=== PATIENT | female | born 1940 | race Caucasian/White ===

== ENCOUNTER 2017-05-07 18:36 | Inpatient (IN) | payer MEDICARE ==
[2017-05-07] MEDS ORDERED: SODIUM CHLORIDE 0.9% 500 ML IV STA (20:00)
[2017-05-07] MEDS ORDERED: FAMOTIDINE 20 MG/2 ML VIAL IV STA (20:01)
--- NOTE | 2017-05-07 20:03 | ED ---
General Adult HPI - General Chief complaint: Extremity Problem,Nontraumatic Stated complaint: left leg swelling Time Seen by Provider: 05/07/17 19:55 Source: patient, RN notes reviewed Mode of arrival: wheelchair Limitations: no limitations - History of Present Illness Initial comments: 76-year-old female presents to the emergency Department chief complaint of swelling to the left lower extremity. Patient states she noticed this yesterday and she had pain with walking to the leg. Patient states she does not see the doctor and she has never been to the doctor. Patient states that she has had some decreased desire to eat over the past week or so and she's lost about 7 pounds. Patient states then this leg swelled up. Patient states that she's never had a feeling this before. Patient was concerned due to her symptoms so she thought that she should be evaluated. Patient denies any recent fever, chills, shortness of breath, chest pain, back pain, abdominal pain, nausea vomiting, numbness or tingling, dysuria or hematuria, constipation or diarrhea, headaches or visual changes, or any other current symptoms. - Related Data Home Medications Medication Instructions Recorded Confirmed No Known Home Medications [No 05/07/17 05/07/17 Known Home Medications] Allergies Allergy/AdvReac Type Severity Reaction Status Date / Time No Known Allergies Allergy Verified 05/07/17 20:19 Review of Systems ROS Statement: Those systems with pertinent positive or pertinent negative responses have been documented in the HPI. ROS Other: All systems not noted in ROS Statement are negative. 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 Eye: Pupils are equal, round and reactive to light, extra-ocular movements are intact; there is normal conjunctiva bilaterally. No signs of icterus. Ears, nose, mouth and throat: There are moist mucous membranes. Neck: The neck is supple, there is no tenderness. Cardiovascular: There is a regular rate and rhythm. No murmur, rub or gallop is appreciated. Respiratory: Lungs are clear to auscultation, respirations are non-labored, breath sounds are equal. No wheezes, stridor, rales, or rhonchi. Gastrointestinal: Soft, non-distended, non-tender abdomen without masses or organomegaly noted. There is no rebound or guarding present. No CVA tenderness. Bowel sounds are unremarkable. Back: There is no tenderness to palpation in the midline. There is no obvious deformity. No rashes noted. Musculoskeletal: Normal ROM, no tenderness, There is no pedal edema. There is no calf tenderness or swelling. Sensation intact. Pulses equal bilaterally 2+. Neurological: CN II-XII intact, There are no obvious motor or sensory deficits. Coordination appears grossly intact. Speech is normal. Skin: Skin is warm and dry and no rashes or lesions are noted. Psychiatric: Cooperative, appropriate mood & affect, normal judgment. Limitations: no limitations Course Vital Signs 05/07/17 19:03 Temperature 99.4 F Pulse Rate 102 H Respiratory 18 Rate Blood Pressure 130/79 O2 Sat by Pulse 97 Oximetry Medical Decision Making - Medical Decision Making 76-year-old female presents for left lower extremity swelling. This time lab work is reviewed. The patient does appear to have a left lower extremity DVT. This time patient does not regularly see physicians. We will admit the patient on IV heparin. We will have vascular consult in due to the extensiveness of the DVT. Patient is in agreement with the plan. Dr. Lazo spoke with the physician on-call. Dr. Hamilton - Lab Data Result diagrams: 05/07/17 20:10 05/07/17 20:10 Lab Results 05/07/17 05/07/17 05/07/17 Range/Units 20:10 20:10 20:10 WBC 8.3 (3.8-10.6) k/uL RBC 3.90 (3.80-5.40) m/uL Hgb 12.6 (11.4-16.0) gm/dL Hct 36.8 (34.0-46.0) % MCV 94.3 (80.0-100.0) fL MCH 32.4 (25.0-35.0) pg MCHC 34.4 (31.0-37.0) g/dL RDW 13.6 (11.5-15.5) % Plt Count 150 (150-450) k/uL Neutrophils % 57 % Lymphocytes % 28 % Monocytes % 9 % Eosinophils % 1 % Basophils % 1 % Neutrophils # 4.8 (1.3-7.7) k/uL Lymphocytes # 2.3 (1.0-4.8) k/uL Monocytes # 0.8 (0-1.0) k/uL Eosinophils # 0.1 (0-0.7) k/uL Basophils # 0.1 (0-0.2) k/uL PT 11.3 (9.0-12.0) sec INR 1.1 (<1.2) APTT 23.3 (22.0-30.0) sec Sodium 131 L (137-145) mmol/L Potassium 4.6 (3.5-5.1) mmol/L Chloride 97 L (98-107) mmol/L Carbon Dioxide 25 (22-30) mmol/L Anion Gap 9 mmol/L BUN 14 (7-17) mg/dL Creatinine 1.00 (0.52-1.04) mg/dL Est GFR (MDRD) Af Amer >60 (>60 ml/min/1.73 sqM) Est GFR (MDRD) Non-Af 54 (>60 ml/min/1.73 sqM) Glucose 121 H (74-99) mg/dL Plasma Lactic Acid Mitchell (0.7-2.0) mmol/L Calcium 9.0 (8.4-10.2) mg/dL Total Bilirubin 1.1 (0.2-1.3) mg/dL AST 37 H (14-36) U/L ALT 50 (9-52) U/L Alkaline Phosphatase 100 (38-126) U/L Total Protein 7.5 (6.3-8.2) g/dL Albumin 3.9 (3.5-5.0) g/dL Amylase 54 (30-110) U/L Lipase 146 (23-300) U/L Urine Color Urine Appearance (Clear) Urine pH (5.0-8.0) Ur Specific [place] (1.001-1.035) Urine Protein (Negative) Urine Glucose (UA) (Negative) Urine Ketones (Negative) Urine Blood (Negative) Urine Nitrite (Negative) Urine Bilirubin (Negative) Urine Urobilinogen (<2.0) mg/dL Ur Leukocyte Esterase (Negative) 05/07/17 05/07/17 Range/Units 20:10 21:23 WBC (3.8-10.6) k/uL RBC (3.80-5.40) m/uL Hgb (11.4-16.0) gm/dL Hct (34.0-46.0) % MCV (80.0-100.0) fL MCH (25.0-35.0) pg MCHC (31.0-37.0) g/dL RDW (11.5-15.5) % Plt Count (150-450) k/uL Neutrophils % % Lymphocytes % % Monocytes % % Eosinophils % % Basophils % % Neutrophils # (1.3-7.7) k/uL Lymphocytes # (1.0-4.8) k/uL Monocytes # (0-1.0) k/uL Eosinophils # (0-0.7) k/uL Basophils # (0-0.2) k/uL PT (9.0-12.0) sec INR (<1.2) APTT (22.0-30.0) sec Sodium (137-145) mmol/L Potassium (3.5-5.1) mmol/L Chloride (98-107) mmol/L Carbon Dioxide (22-30) mmol/L Anion Gap mmol/L BUN (7-17) mg/dL Creatinine (0.52-1.04) mg/dL Est GFR (MDRD) Af Amer (>60 ml/min/1.73 sqM) Est GFR (MDRD) Non-Af (>60 ml/min/1.73 sqM) Glucose (74-99) mg/dL Plasma Lactic Acid Mitchell 0.9 (0.7-2.0) mmol/L Calcium (8.4-10.2) mg/dL Total Bilirubin (0.2-1.3) mg/dL AST (14-36) U/L ALT (9-52) U/L Alkaline Phosphatase (38-126) U/L Total Protein (6.3-8.2) g/dL Albumin (3.5-5.0) g/dL Amylase (30-110) U/L Lipase (23-300) U/L Urine Color Light Yellow Urine Appearance Clear (Clear) Urine pH 6.5 (5.0-8.0) Ur Specific [place] 1.002 (1.001-1.035) Urine Protein Negative (Negative) Urine Glucose (UA) Negative (Negative) Urine Ketones Negative (Negative) Urine Blood Negative (Negative) Urine Nitrite Negative (Negative) Urine Bilirubin Negative (Negative) Urine Urobilinogen <2.0 (<2.0) mg/dL Ur Leukocyte Esterase Negative (Negative) - Radiology Data Radiology results: report reviewed, image reviewed Disposition Clinical Impression: Deep vein thrombosis (DVT) of left lower extremity, Hyponatremia Disposition: ADMITTED IP TO THIS [facility] Condition: Stable Referrals: Patricia Maya MD [Primary Care Provider] - 1-2 days Time of Disposition: 22:12 Decision Date: 05/07/17 Decision Time: 22:12
[2017-05-07 20:17] LABS: Basophils # (A) 0.1 k/uL (0-0.2); Basophils % (A) 1 %; CH 32.4; CHCM 34.5; Eosinophils # (A) 0.1 k/uL (0-0.7); Eosinophils % (A) 1 %; HCT 36.8 % (34.0-46.0); HDW 2.51; HGB 12.6 gm/dL (11.4-16.0); Luc # (Auto) 0.26; Luc % (Auto) 3; Lymphocytes # (A) 2.3 k/uL (1.0-4.8); Lymphocytes % (A) 28 %; MCH 32.4 pg (25.0-35.0); MCHC 34.4 g/dL (31.0-37.0); MCV 94.3 fL (80.0-100.0); Mean Platelet Volume 7.9; Monocytes # (A) 0.8 k/uL (0-1.0); Monocytes % (A) 9 %; Neutrophils # (A) 4.8 k/uL (1.3-7.7); Neutrophils % (A) 57 %; RDW 13.6 % (11.5-15.5); WBC 8.3 k/uL (3.8-10.6); WBC (Perox) 7.97
[2017-05-07 20:29] LABS: ALT 50 U/L (9-52); AST 37 U/L (14-36); Alkaline Phosphatase 100 U/L (38-126); Amylase 54 U/L (30-110); Anion Gap 9 mmol/L; Blood Urea Nitrogen 14 mg/dL (7-17); Carbon Dioxide 25 mmol/L (22-30); Chloride 97 mmol/L (98-107); Glucose 121 mg/dL (74-99); INR 1.1 (<1.2); Non-African American GFR(MDRD) 54 (>60 ml/min/1.73 sqM); Partial Thromboplastin Time 23.3 sec (22.0-30.0); Potassium 4.6 mmol/L (3.5-5.1); Prothrombin Time 11.3 sec (9.0-12.0); Sodium 131 mmol/L (137-145); Total Bilirubin 1.1 mg/dL (0.2-1.3); Total Protein 7.5 g/dL (6.3-8.2)
--- NOTE | 2017-05-07 21:02 | US ---
EXAMINATION TYPE: US venous doppler duplex LE LT DATE OF EXAM: 05/07/2017 8:53 PM COMPARISON: NONE CLINICAL HISTORY: Pain. Left leg swelling SIDE PERFORMED: Left TECHNIQUE: The lower extremity deep venous system is examined utilizing real time linear array sonog loren with graded compression, doppler sonography and color-flow sonography. VESSELS IMAGED: External Iliac Vein (EIV) Common Femoral Vein Deep Femoral Vein Greater Saphenous Vein * Femoral Vein Popliteal Vein Small Saphenous Vein * Proximal Calf Veins (* superficial vessels) Left Leg: Positive for DVT right EIV through proximal calf veins IMPRESSION: There is extensive deep venous thrombosis in the left leg from the external iliac vein to the popliteal vein.
[2017-05-07] MEDS ORDERED: HEPARIN SODIUM,PORCINE 5,000 UNIT/ML 1 ML VIAL IV ONE (21:29)
[2017-05-07] MEDS ORDERED: HEPARIN SODIUM,PORCINE 5,000 UNIT/ML 1 ML VIAL IV PRN (21:29)
[2017-05-07] MEDS: HEPARIN SODIUM,PORCINE/D5W PMX 25,000 UNIT in DEXTROSE/WATER 1 500ML.BAG IV SCH (21:41)
[2017-05-07 21:42] LABS: Appearance,Urine Clear (Clear); Bilirubin,Urine Negative (Negative); Glucose,Urine (UA) Negative (Negative); Ketones,Urine Negative (Negative); Leukocyte Esterase,Urine Negative (Negative); Nitrite,Urine Negative (Negative); PH, Urine 6.5 (5.0-8.0); Protein,Urine Negative (Negative); Specific Gravity,Urine 1.002 (1.001-1.035); UA Billing (MACRO vs. MICRO) CHEM; Urobilinogen,Urine <2.0 mg/dL (<2.0)
[2017-05-07] MEDS ORDERED: IBUPROFEN 400 MG TAB PO PRN (22:13)
[2017-05-07] MEDS ORDERED: ACETAMINOPHEN TAB 325 MG TAB PO PRN (22:13)
[2017-05-07] MEDS ORDERED: NALOXONE 0.4 MG/ML 1 ML VIAL IV PRN (22:13)
[2017-05-08] MEDS: SODIUM CHLORIDE 0.9% 1,000 ML IV SCH ×3 (02:14→21:39)
[2017-05-08 03:34] LABS: Basophils # (A) 0.1 k/uL (0-0.2); Basophils % (A) 1 %; CH 32.2; CHCM 33.7; Eosinophils # (A) 0.2 k/uL (0-0.7); Eosinophils % (A) 2 %; HCT 32.2 % (34.0-46.0); HDW 2.49; HGB 10.7 gm/dL (11.4-16.0); Luc # (Auto) 0.31; Luc % (Auto) 4; Lymphocytes # (A) 3.2 k/uL (1.0-4.8); Lymphocytes % (A) 44 %; MCH 31.9 pg (25.0-35.0); MCHC 33.3 g/dL (31.0-37.0); MCV 95.7 fL (80.0-100.0); Mean Platelet Volume 7.4; Monocytes # (A) 0.4 k/uL (0-1.0); Monocytes % (A) 6 %; Neutrophils # (A) 3.2 k/uL (1.3-7.7); Neutrophils % (A) 43 %; RBC 3.37 m/uL (3.80-5.40); RDW 13.6 % (11.5-15.5); WBC 7.3 k/uL (3.8-10.6); WBC (Perox) 7.37
[2017-05-08] MEDS ORDERED: RX INFO: IV CONTRAST WAS GIVEN 1 EACH MISC MISCELLANE PRN (09:43)
[2017-05-08] MEDS ORDERED: IOHEXOL 350 MG/ML 25 ML BOTTLE (ORAL USE) PO PRN (09:43)
[2017-05-08 09:50] LABS: ALT 38 U/L (9-52); AST 31 U/L (14-36); Alkaline Phosphatase 77 U/L (38-126); Anion Gap 9 mmol/L; Blood Urea Nitrogen 10 mg/dL (7-17); Calcium 8.3 mg/dL (8.4-10.2); Carbon Dioxide 23 mmol/L (22-30); Chloride 102 mmol/L (98-107); Glucose 143 mg/dL (74-99); Non-African American GFR(MDRD) >60 (>60 ml/min/1.73 sqM); Potassium 4.8 mmol/L (3.5-5.1); Sodium 134 mmol/L (137-145); Total Bilirubin 0.7 mg/dL (0.2-1.3); Total Protein 6.3 g/dL (6.3-8.2)
--- NOTE | 2017-05-08 09:53 | P.HPIM ---
History of Present Illness H&P Date: 05/08/17 Chief Complaint: Left lower extremity swelling and pain 4 days This is a 76-year-old female, patient of Dr. Maya. She has no significant past medical history. She's not on any medications at home. Patient reports Monday she started having left leg pain and swelling. Symptoms continued to progress and therefore she came into the emergency room for further evaluation. Venous Doppler showed evidence of a left leg DVT from the external iliac vein to the popliteal vein. Vascular surgery has been consulted. Patient was started on IV heparin in the emergency room. Patient reports that she is been laying on the couch on a lot over the last 3 weeks she's been very inactive which is unusual for her. She's been fatigued and has had a decrease in appetite for the past 3 weeks for no apparent reason. She's also reported a 7 pound weight loss. She reports no stomach pain no vomiting no diarrhea. She has been having regular bowel movements no blood in the stools. She denies any chest pain or shortness of breath. She denies any fevers chills or sweats. Denies any burning with urination. Patient reports that she's never had a colonoscopy completed. She also reports that she has not had a Pap smear and she even states mammogram since her kids were small. A chest x-ray and computed tomography scan the abdomen and pelvis have also been ordered in regards to this decrease in her appetite with weight loss. Patient had some hyponatremia on admission sodium of 131. She's had no recent traveling. And no family history of blood clots. 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 Past Anesthesia/Blood Transfusion Reactions: No Reported Reaction Past Psychological History: No Psychological Hx Reported Smoking Status: Never smoker Past Alcohol Use History: None Reported Past Drug Use History: None Reported - Past Family History Father Family Medical History: No Reported History Mother Family Medical History: No Reported History Medications and Allergies Home Medications Medication Instructions Recorded Confirmed Type No Known Home Medications [No 05/07/17 05/07/17 History Known Home Medications] Allergies Allergy/AdvReac Type Severity Reaction Status Date / Time No Known Allergies Allergy Verified 05/07/17 20:19 Physical Exam Vitals: Vital Signs Temp Pulse Pulse Resp BP BP Pulse Ox 05/08/17 07:00 99.2 F 123 H 16 140/94 94 L 05/07/17 23:30 98.2 F 83 18 138/76 98 05/07/17 23:09 99.5 F 77 18 135/84 96 05/07/17 22:12 98.4 F 83 18 131/77 97 05/07/17 19:03 99.4 F 102 H 18 130/79 97 Intake and Output 05/07/17 05/08/17 05/08/17 22:59 06:59 14:59 Intake Total 412.4 99.54 Balance 412.4 99.54 Intake: Intake, IV Titration 162.4 99.54 Amount Heparin Sodium,Porcine/ 162.4 99.54 D5w Pmx 25,000 unit In Dextrose/Water 1 500ml. bag @ 18 UNITS/KG/HR 24 mls/hr IV .[id number] [facility] Rx #:[id number] Oral 250 Other: Voiding Method Bedpan # Voids 1 # Bowel Movements 0 Weight 66.678 kg 65.771 kg Head normocephalic Neck supple Lungs clear to auscultation bilaterally no wheezing or crackles Heart regular rate and rhythm S1-S2, no rub or gallop Abdomen is soft nontender nondistended positive bowel sounds no hepatosplenomegaly Extremities left leg is swollen and tender with palpation Neuro alert and orientated to 3 Results CBC & Chem 7: 05/08/17 03:26 05/07/17 20:10 Labs: Abnormal Lab Results - Last 24 Hours (Table) 05/07/17 05/08/17 05/08/17 Range/Units 20:10 03:26 03:26 RBC 3.37 L (3.80-5.40) m/uL Hgb 10.7 L (11.4-16.0) gm/dL Hct 32.2 L (34.0-46.0) % Plt Count 118 L (150-450) k/uL APTT 77.8 H (22.0-30.0) sec Sodium 131 L (137-145) mmol/L Chloride 97 L (98-107) mmol/L Glucose 121 H (74-99) mg/dL AST 37 H (14-36) U/L 07/24/17 Range/Units 08:24 RBC (3.80-5.40) m/uL Hgb (11.4-16.0) gm/dL Hct (34.0-46.0) % Plt Count (150-450) k/uL APTT 50.5 H (22.0-30.0) sec Sodium (137-145) mmol/L Chloride (98-107) mmol/L Glucose (74-99) mg/dL AST (14-36) U/L Thrombosis Risk Factor Assmnt - Choose All That Apply Each Risk Factor Represents 2 Points: Patient confined to bed Each Risk Factor Represents 3 Points: Age 75 years or older, History of DVT/PE Thrombosis Risk Factor Assessment Total Risk Factor Score: 8 Thrombosis Risk Factor Assessment Level: High Risk Assessment and Plan Plan: 1. Left lower extremity DVT: Venous Doppler shows DVT in the left leg from the external iliac vein to the popliteal vein. Patient is been placed on IV heparin. Vascular surgery has been consulted. 2. Unexplained decrease in appetite with a 7 pound weight loss over the past 3 weeks and extreme fatigue. Check chest x-ray and computed tomography scan of the abdomen and pelvis to rule out any malignancy 3. Hyponatremia on admission possibly related to poor oral intake. She is to been started on normal saline. Repeat a sodium level today and continue to monitor daily. 4. Tachycardia: Heart rate of 123. Check EKG place patient on telemetry. Continue to monitor GI prophylaxis Pepcid and DVT prophylaxis IV heparin Time with Patient: Greater than 30 (Greater than 50% of the total time spent in counseling and coordination of care. I performed an examination of the patient and discussed their management with the physician Maintenance Welder. I have reviewed the Physician Maintenance Welder's notes and agree with the documented findings and plan of care)
--- NOTE | 2017-05-08 12:31 | CT ---
EXAMINATION TYPE: CT abdomen pelvis wo con DATE OF EXAM: 05/08/2017 HISTORY: Patient complains of decreased appetite and weakness. CT DLP: 822 mGycm. Automated Exposure Control for Dose Reduction was Utilized. TECHNIQUE: CT scan of the abdomen and pelvis is performed with oral but without IV contrast. COMPARISON: NONE FINDINGS: Within the limitations of a non-contrast study, the following observations are made. LUNG BASES: Coronary artery calcification is present. Some respiratory motion artifact is noted. Kemar ot exclude basilar emphysematous change. LIVER/GB: No significant abnormality is appreciated. PANCREAS: Pancreas is not well seen on noncontrast study particularly distal body and tail portion, v isualized head and proximal body are felt unremarkable on noncontrast CT. SPLEEN: No significant abnormality is seen. ADRENALS: No significant abnormality is seen. 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 There is no suspicious dilatation of duodenal sweep. Contrast is seen in nondistended small bowel loops in the midabdomen. There is ve ry little oral contrast making evaluation suboptimal. Fecal material is seen in nondistended colon al mariza the periphery. There are scattered colonic diverticula most pronounced in the left and sigmoid co us. There is no convincing evidence for acute diverticulitis. GENITAL ORGANS: Uterus is anteverted in shape and within normal limits in size. LYMPH NODES: No greater than 1cm abdominal or pelvic lymph nodes are appreciated. OSSEOUS STRUCTURES: Osseous structures are demineralized. There is multilevel facet arthropathy in th e lower lumbar spine. There is disc space narrowing L4-L5 level. There is prominent Schmorl node supe rior T12 endplate. OTHER: There is heterogeneous hyperdense enlargement of the left common femoral vein extending throug h the external and common iliac vein is surrounding fluid and fat stranding. Findings correlate with long segment thrombus at this level on recent venous ultrasound. Thrombophlebitis cannot be excluded. Nodular structures left pelvis and presacral space could reflect tortuous enlarged occluded vein, ad enopathy cannot be excluded on a noncontrast enhanced study. There is mild calcified plaque in slightly tortuous abdominal aorta. IMPRESSION: No bowel obstruction is seen. Left lower extremity venous thrombus extending into pelvis is redemonstrated. Thrombophlebitis cannot be excluded as there is ill-defined fluid and fat strandin g from left thigh into pelvis noted. Cannot exclude left pelvic adenopathy versus prominent tortuous veins on study performed without IV contrast. Consider correlation with IV enhanced CT or PET/CT.
--- NOTE | 2017-05-08 12:32 | XR ---
EXAMINATION TYPE: XR chest 2V DATE OF EXAM ORDERED: 05/08/2017 HISTORY: unexplained decrease appetite. REFERENCE: None. FINDINGS: The lungs are clear. Pleural spaces are clear. Heart size is normal. IMPRESSION: NORMAL CHEST.
[2017-05-08 15:32] VITALS: BMI 23.3
--- NOTE | 2017-05-08 17:50 | P.GSCN ---
History of Present Illness History of present illness: 76 old white female, patient has been admitted with DVT of the left lower extremity according to patient she started developing some discomfort and heavy feeling in left lower extremity that was the reason brought to the emergency room. And also gives history of l os of appetite for the past 3 weeks, no history of nausea vomiting or pain in the abdomen this patient had no workup for colonoscopy your Pap smear . Of diabetes hypertension coronary artery disease Neck examination neck is supple no bruit appreciated Chest clear first and second sound normal Abdomen soft nontender no mass palpable Vascular examination brachial radial and femoral pulses are palpable tenderness noted ask her compromise noted Patient is on heparin which will be continued we will put a stitch Jobst stocking and left leg elevation if there is any contraindication to a decub ablation we consider placing filter I have discussed in detail all the option with the family they understand we'll follow with you Past Medical History Past Medical History: No Reported History History of Any Multi-Drug Resistant Organisms: None Reported 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 Past Anesthesia/Blood Transfusion Reactions: No Reported Reaction Past Psychological History: No Psychological Hx Reported Smoking Status: Never smoker Past Alcohol Use History: None Reported Past Drug Use History: None Reported - Past Family History Father Family Medical History: No Reported History Mother Family Medical History: No Reported History Medications and Allergies Home Medications Medication Instructions Recorded Confirmed Type No Known Home Medications [No 05/07/17 05/07/17 History Known Home Medications] Allergies Allergy/AdvReac Type Severity Reaction Status Date / Time No Known Allergies Allergy Verified 05/07/17 20:19 Surgical - Exam Vital Signs Temp Pulse Resp BP Pulse Ox 99.4 F 102 H 18 130/79 97 05/07/17 19:03 05/07/17 19:03 05/07/17 19:03 05/07/17 19:03 05/07/17 19:03 Results - Labs 05/08/17 03:26 05/08/17 08:24 Abnormal Lab Results - Last 24 Hours (Table) 05/07/17 05/08/17 05/08/17 Range/Units 20:10 03:26 03:26 RBC 3.37 L (3.80-5.40) m/uL Hgb 10.7 L (11.4-16.0) gm/dL Hct 32.2 L (34.0-46.0) % Plt Count 118 L (150-450) k/uL APTT 77.8 H (22.0-30.0) sec Sodium 131 L (137-145) mmol/L Chloride 97 L (98-107) mmol/L Glucose 121 H (74-99) mg/dL Calcium (8.4-10.2) mg/dL AST 37 H (14-36) U/L Albumin (3.5-5.0) g/dL 05/08/17 05/08/17 Range/Units 08:24 08:24 RBC (3.80-5.40) m/uL Hgb (11.4-16.0) gm/dL Hct (34.0-46.0) % Plt Count (150-450) k/uL APTT 50.5 H (22.0-30.0) sec Sodium 134 L (137-145) mmol/L Chloride (98-107) mmol/L Glucose 143 H (74-99) mg/dL Calcium 8.3 L (8.4-10.2) mg/dL AST (14-36) U/L Albumin 3.2 L (3.5-5.0) g/dL Diabetes panel 05/07/17 05/08/17 Range/Units 20:10 08:24 Sodium 131 L 134 L (137-145) mmol/L Potassium 4.6 4.8 (3.5-5.1) mmol/L Chloride 97 L 102 (98-107) mmol/L Carbon Dioxide 25 23 (22-30) mmol/L BUN 14 10 (7-17) mg/dL Creatinine 1.00 0.89 (0.52-1.04) mg/dL Glucose 121 H 143 H (74-99) mg/dL Calcium 9.0 8.3 L (8.4-10.2) mg/dL AST 37 H 31 (14-36) U/L ALT 50 38 (9-52) U/L Alkaline Phosphatase 100 77 (38-126) U/L Total Protein 7.5 6.3 (6.3-8.2) g/dL Albumin 3.9 3.2 L (3.5-5.0) g/dL Calcium panel 05/07/17 05/08/17 Range/Units 20:10 08:24 Calcium 9.0 8.3 L (8.4-10.2) mg/dL Albumin 3.9 3.2 L (3.5-5.0) g/dL Pituitary panel 05/07/17 05/08/17 Range/Units 20:10 08:24 Sodium 131 L 134 L (137-145) mmol/L Potassium 4.6 4.8 (3.5-5.1) mmol/L Chloride 97 L 102 (98-107) mmol/L Carbon Dioxide 25 23 (22-30) mmol/L BUN 14 10 (7-17) mg/dL Creatinine 1.00 0.89 (0.52-1.04) mg/dL Glucose 121 H 143 H (74-99) mg/dL Calcium 9.0 8.3 L (8.4-10.2) mg/dL Adrenal panel 05/07/17 05/08/17 Range/Units 20:10 08:24 Sodium 131 L 134 L (137-145) mmol/L Potassium 4.6 4.8 (3.5-5.1) mmol/L Chloride 97 L 102 (98-107) mmol/L Carbon Dioxide 25 23 (22-30) mmol/L BUN 14 10 (7-17) mg/dL Creatinine 1.00 0.89 (0.52-1.04) mg/dL Glucose 121 H 143 H (74-99) mg/dL Calcium 9.0 8.3 L (8.4-10.2) mg/dL Total Bilirubin 1.1 0.7 (0.2-1.3) mg/dL AST 37 H 31 (14-36) U/L ALT 50 38 (9-52) U/L Alkaline Phosphatase 100 77 (38-126) U/L Total Protein 7.5 6.3 (6.3-8.2) g/dL Albumin 3.9 3.2 L (3.5-5.0) g/dL
[2017-05-09] MEDS: HEPARIN SODIUM,PORCINE/D5W PMX 25,000 UNIT in DEXTROSE/WATER 1 500ML.BAG IV SCH ×2 (07:53→17:53)
[2017-05-09 09:00] LABS: Basophils # (A) 0.1 k/uL (0-0.2); Basophils % (A) 1 %; CH 31.9; CHCM 33.2; Eosinophils # (A) 0.1 k/uL (0-0.7); Eosinophils % (A) 2 %; HCT 33.4 % (34.0-46.0); HDW 2.52; HGB 11.2 gm/dL (11.4-16.0); Luc # (Auto) 0.17; Luc % (Auto) 3; Lymphocytes % (A) 34 %; MCH 32.3 pg (25.0-35.0); MCHC 33.5 g/dL (31.0-37.0); MCV 96.4 fL (80.0-100.0); Mean Platelet Volume 7.7; Monocytes # (A) 0.5 k/uL (0-1.0); Monocytes % (A) 9 %; Neutrophils % (A) 52 %; RBC 3.46 m/uL (3.80-5.40); RDW 13.5 % (11.5-15.5); WBC 5.9 k/uL (3.8-10.6); WBC (Perox) 5.14
[2017-05-09 09:12] LABS: ALT 49 U/L (9-52); AST 35 U/L (14-36); Alkaline Phosphatase 80 U/L (38-126); Anion Gap 8 mmol/L; Blood Urea Nitrogen 7 mg/dL (7-17); Calcium 8.1 mg/dL (8.4-10.2); Carbon Dioxide 19 mmol/L (22-30); Chloride 106 mmol/L (98-107); Glucose 137 mg/dL (74-99); Non-African American GFR(MDRD) >60 (>60 ml/min/1.73 sqM); Sodium 133 mmol/L (137-145); Total Bilirubin 0.7 mg/dL (0.2-1.3)
[2017-05-09] MEDS: FAMOTIDINE 20 MG TAB PO SCH (09:28)
[2017-05-09] MEDS: SODIUM CHLORIDE 0.9% 1,000 ML IV SCH (13:23)
--- NOTE | 2017-05-09 14:25 | P.PN ---
Progress Note - Text Patient came with left lower extremity and I've ex upper extremity swelling and pain patient had ultrasound which showed DVT of the external iliac vein and popliteal vein shortnessofbreathfemoralpulsesarepresentnovascularcompromisenotedpatientisonhepa [place] and patient goes home follow-up in my office in 2 weeks
--- NOTE | 2017-05-09 19:31 | P.PN ---
Subjective This is a 76-year-old female, patient of Dr. Maya. She has no significant past medical history. She's not on any medications at home. Patient reports Monday she started having left leg pain and swelling. Symptoms continued to progress and therefore she came into the emergency room for further evaluation. Venous Doppler showed evidence of a left leg DVT from the external iliac vein to the popliteal vein. Vascular surgery has been consulted. Patient was started on IV heparin in the emergency room. Patient reports that she is been laying on the couch on a lot over the last 3 weeks she's been very inactive which is unusual for her. She's been fatigued and has had a decrease in appetite for the past 3 weeks for no apparent reason. She's also reported a 7 pound weight loss. On 05/09/2017 patient is alert and oriented in no apparent distress, patient seen and examined in the presence of her family including her 2 sons She is doing well she denies any chest pain or shortness of breath at this time she is complaining of left lower extremity pain and swelling otherwise no complaints at this time. Objective - Vital Signs Vital signs: Vital Signs Temp 99.5 F 05/09/17 14:54 Pulse 83 05/09/17 14:54 Resp 16 05/09/17 14:54 BP 124/72 05/09/17 14:54 Pulse Ox 94 L 05/09/17 14:54 Intake & Output 05/09/17 05/09/17 05/10/17 06:59 18:59 06:59 Intake Total 1450 191.041 Balance 1450 191.041 Intake: Intake, IV Titration 1000 191.041 Amount Heparin Sodium,Porcine/ 191.041 D5w Pmx 25,000 unit In Dextrose/Water 1 500ml. bag @ 18 UNITS/KG/HR 24 mls/hr IV .[id number] [facility] Rx #:[id number] Sodium Chloride 0.9% 1, 1000 000 ml @ 80 mls/hr IV . [id number] [facility] Rx#:[id number] Oral 450 Other: Voiding Method Bedpan Bedpan # Voids 3 2 # Bowel Movements 0 - Exam In general patient is alert and oriented 3 HEENT head normocephalic and atraumatic Neck is supple no JVD no goiter no lymphadenopathy Chest is clear to auscultation no crackles no wheezing Cardiac exam reveals regular heart sounds no gallops no murmurs Abdomen is soft nontender no organomegaly Extremity exam reveals 2+ edema on the left more than the right - Labs CBC & Chem 7: 05/09/17 08:31 05/09/17 08:31 Labs: Abnormal Lab Results - Last 24 Hours (Table) 05/09/17 05/09/17 05/09/17 Range/Units 08:31 08:31 08:31 RBC 3.46 L (3.80-5.40) m/uL Hgb 11.2 L (11.4-16.0) gm/dL Hct 33.4 L (34.0-46.0) % Plt Count 141 L (150-450) k/uL APTT 45.3 H (22.0-30.0) sec Sodium 133 L (137-145) mmol/L Carbon Dioxide 19 L (22-30) mmol/L Glucose 137 H (74-99) mg/dL Calcium 8.1 L (8.4-10.2) mg/dL Total Protein 6.0 L (6.3-8.2) g/dL Albumin 2.9 L (3.5-5.0) g/dL 05/09/17 Range/Units 16:51 RBC (3.80-5.40) m/uL Hgb (11.4-16.0) gm/dL Hct (34.0-46.0) % Plt Count (150-450) k/uL APTT 57.2 H (22.0-30.0) sec Sodium (137-145) mmol/L Carbon Dioxide (22-30) mmol/L Glucose (74-99) mg/dL Calcium (8.4-10.2) mg/dL Total Protein (6.3-8.2) g/dL Albumin (3.5-5.0) g/dL Microbiology - Last 24 Hours (Table) 05/07/17 20:10 Blood Culture - Preliminary Blood No Growth after 24 hours Assessment and Plan Plan: 1. Left lower extremity DVT: Venous Doppler shows DVT in the left leg from the external iliac vein to the popliteal vein. Patient is been placed on IV heparin. Vascular surgery has been consulted. At this time continue with IV heparin I left a message for trimming caser Iveth Manning to assess was insurance coverage for Eliquis or Xarelto if there is no coverage will proceed was Coumadin. 2. Unexplained decrease in appetite with a 7 pound weight loss over the past 3 weeks and extreme fatigue. Check chest x-ray and computed tomography scan of the abdomen and pelvis to rule out any malignancy 3. Hyponatremia on admission possibly related to poor oral intake. She is to been started on normal saline. Repeat a sodium level today and continue to monitor daily. 4. Tachycardia: Heart rate of 123. Check EKG place patient on telemetry. Continue to monitor
[2017-05-10] MEDS: SODIUM CHLORIDE 0.9% 1,000 ML IV SCH ×3 (04:42→23:46)
[2017-05-10] MEDS: FAMOTIDINE 20 MG TAB PO SCH (09:53)
[2017-05-10 10:37] LABS: Basophils # (A) 0.1 k/uL (0-0.2); Basophils % (A) 1 %; CH 31.9; CHCM 33.8; Eosinophils # (A) 0.1 k/uL (0-0.7); Eosinophils % (A) 2 %; HCT 32.2 % (34.0-46.0); HDW 2.58; HGB 10.8 gm/dL (11.4-16.0); Luc % (Auto) 4; Lymphocytes % (A) 37 %; MCH 31.7 pg (25.0-35.0); MCHC 33.5 g/dL (31.0-37.0); MCV 94.7 fL (80.0-100.0); Monocytes # (A) 0.6 k/uL (0-1.0); Monocytes % (A) 11 %; Neutrophils # (A) 2.5 k/uL (1.3-7.7); Neutrophils % (A) 45 %; RDW 13.4 % (11.5-15.5); WBC 5.4 k/uL (3.8-10.6); WBC (Perox) 5.38
[2017-05-10 10:38] LABS: INR 1.2 (<1.2); Prothrombin Time 11.8 sec (9.0-12.0)
[2017-05-10 11:02] LABS: ALT 55 U/L (9-52); AST 39 U/L (14-36); Alkaline Phosphatase 81 U/L (38-126); Anion Gap 6 mmol/L; Blood Urea Nitrogen 7 mg/dL (7-17); Calcium 8.3 mg/dL (8.4-10.2); Carbon Dioxide 25 mmol/L (22-30); Chloride 105 mmol/L (98-107); Glucose 110 mg/dL (74-99); Non-African American GFR(MDRD) >60 (>60 ml/min/1.73 sqM); Potassium 4.5 mmol/L (3.5-5.1); Sodium 136 mmol/L (137-145); Total Bilirubin 0.5 mg/dL (0.2-1.3); Total Protein 5.8 g/dL (6.3-8.2)
[2017-05-10] MEDS: HEPARIN SODIUM,PORCINE/D5W PMX 25,000 UNIT in DEXTROSE/WATER 1 500ML.BAG IV SCH (15:03)
--- NOTE | 2017-05-10 17:35 | P.PN ---
Subjective This is a 76-year-old female, patient of Dr. Maya. She has no significant past medical history. She's not on any medications at home. Patient reports Monday she started having left leg pain and swelling. Symptoms continued to progress and therefore she came into the emergency room for further evaluation. Venous Doppler showed evidence of a left leg DVT from the external iliac vein to the popliteal vein. Vascular surgery has been consulted. Patient was started on IV heparin in the emergency room. Patient reports that she is been laying on the couch on a lot over the last 3 weeks she's been very inactive which is unusual for her. She's been fatigued and has had a decrease in appetite for the past 3 weeks for no apparent reason. She's also reported a 7 pound weight loss. On 05/09/2017 patient is alert and oriented in no apparent distress, patient seen and examined in the presence of her family including her 2 sons She is doing well she denies any chest pain or shortness of breath at this time she is complaining of left lower extremity pain and swelling otherwise no complaints at this time. Objective - Vital Signs Vital signs: Vital Signs Temp 97.5 F L 05/10/17 07:00 Pulse 77 05/10/17 07:00 Resp 16 05/10/17 07:00 BP 169/72 05/10/17 07:00 Pulse Ox 97 05/10/17 07:00 Intake & Output 05/09/17 05/10/17 05/10/17 18:59 06:59 18:59 Intake Total 773.846 0943 1460 Balance 150.792 8615 1460 Intake: Intake, IV Titration 047.096 5700 1460 Amount Heparin Sodium,Porcine/ 191.041 500 D5w Pmx 25,000 unit In Dextrose/Water 1 500ml. bag @ 18 UNITS/KG/HR 24 mls/hr IV .[id number] [facility] Rx #:[id number] Sodium Chloride 0.9% 1, 1000 960 000 ml @ 80 mls/hr IV . [id number] [facility] Rx#:[id number] Other: Voiding Method Bedpan Toilet Toilet Bedside Commode Bedside Commode # Voids 2 1 3 - Exam In general patient is alert and oriented 3 HEENT head normocephalic and atraumatic Neck is supple no JVD no goiter no lymphadenopathy Chest is clear to auscultation no crackles no wheezing Cardiac exam reveals regular heart sounds no gallops no murmurs Abdomen is soft nontender no organomegaly Extremity exam reveals 2+ edema on the left more than the right - Labs CBC & Chem 7: 05/10/17 09:42 05/10/17 09:42 Labs: Abnormal Lab Results - Last 24 Hours (Table) 05/10/17 05/10/17 05/10/17 Range/Units 09:42 09:42 09:42 RBC 3.40 L (3.80-5.40) m/uL Hgb 10.8 L (11.4-16.0) gm/dL Hct 32.2 L (34.0-46.0) % INR 1.2 H (<1.2) APTT (22.0-30.0) sec Sodium 136 L (137-145) mmol/L Glucose 110 H (74-99) mg/dL Calcium 8.3 L (8.4-10.2) mg/dL AST 39 H (14-36) U/L ALT 55 H (9-52) U/L Total Protein 5.8 L (6.3-8.2) g/dL Albumin 2.8 L (3.5-5.0) g/dL 05/10/17 Range/Units 09:42 RBC (3.80-5.40) m/uL Hgb (11.4-16.0) gm/dL Hct (34.0-46.0) % INR (<1.2) APTT 47.1 H (22.0-30.0) sec Sodium (137-145) mmol/L Glucose (74-99) mg/dL Calcium (8.4-10.2) mg/dL AST (14-36) U/L ALT (9-52) U/L Total Protein (6.3-8.2) g/dL Albumin (3.5-5.0) g/dL Microbiology - Last 24 Hours (Table) 05/07/17 20:10 Blood Culture - Preliminary Blood No Growth after 48 hours Assessment and Plan Plan: 1. Left lower extremity DVT: Venous Doppler shows DVT in the left leg from the external iliac vein to the popliteal vein. Patient is been placed on IV heparin. Vascular surgery has been consulted. At this time continue with IV heparin I left a message for rehabilitation case coordinator Iveth Manning to assess was insurance coverage for Eliquis or Xarelto if there is no coverage will proceed was Coumadin. 2. Unexplained decrease in appetite with a 7 pound weight loss over the past 3 weeks and extreme fatigue. Check chest x-ray and computed tomography scan of the abdomen and pelvis to rule out any malignancy 3. Hyponatremia on admission possibly related to poor oral intake. She is to been started on normal saline. Repeat a sodium level today and continue to monitor daily. 4. Tachycardia: Resolved. Plan is for discharge home tomorrow on Xarelto
[2017-05-11 07:41] LABS: Basophils # (A) 0.1 k/uL (0-0.2); Basophils % (A) 1 %; CHCM 33.9; Eosinophils # (A) 0.2 k/uL (0-0.7); Eosinophils % (A) 4 %; HCT 32.8 % (34.0-46.0); HDW 2.65; Luc # (Auto) 0.16; Luc % (Auto) 4; Lymphocytes # (A) 2.1 k/uL (1.0-4.8); Lymphocytes % (A) 44 %; MCH 31.8 pg (25.0-35.0); MCHC 33.6 g/dL (31.0-37.0); MCV 94.8 fL (80.0-100.0); Mean Platelet Volume 7.8; Monocytes # (A) 0.4 k/uL (0-1.0); Monocytes % (A) 9 %; Neutrophils # (A) 1.9 k/uL (1.3-7.7); Neutrophils % (A) 39 %; RBC 3.45 m/uL (3.80-5.40); RDW 13.9 % (11.5-15.5); WBC 4.8 k/uL (3.8-10.6); WBC (Perox) 4.97
[2017-05-11 08:04] VITALS: BP 147/89; PULSE 81; RESP 16; TEMP 97.1
[2017-05-11 08:09] LABS: ALT 56 U/L (9-52); AST 39 U/L (14-36); Alkaline Phosphatase 84 U/L (38-126); Anion Gap 5 mmol/L; Blood Urea Nitrogen 7 mg/dL (7-17); Calcium 8.4 mg/dL (8.4-10.2); Carbon Dioxide 25 mmol/L (22-30); Chloride 106 mmol/L (98-107); Glucose 96 mg/dL (74-99); Non-African American GFR(MDRD) >60 (>60 ml/min/1.73 sqM); Potassium 4.4 mmol/L (3.5-5.1); Sodium 136 mmol/L (137-145); Total Bilirubin 0.6 mg/dL (0.2-1.3)
[2017-05-11] MEDS: FAMOTIDINE 20 MG TAB PO SCH (08:22)
[2017-05-11] MEDS ORDERED: RIVAROXABAN 15 MG TAB PO STA (09:46)
--- NOTE | 2017-05-11 10:29 | P.DS ---
Providers Date of admission: 05/07/17 22:09 Attending physician: Juanis Hamilton Consults: 05/07/17 22:13 Consult Physician Routine Consulting Provider: Abdirashid Kothari Consult Reason/Comments: LLE DVT Do you want consulting provider notified?: Yes Primary care physician: Patricia Maya Hospital Course: Discharge diagnosis 1. Left lower extremity DVT: Venous Doppler shows DVT in the left leg from the external iliac vein to the popliteal vein. Patient is been placed on IV heparin. Patient evaluated by vascular surgery. No need for surgical intervention. She'll be placed on oral anticoagulation in the form of Xarelto with a $47 copay and follow-up with vascular surgery in 2 weeks. Continue RUDI hose. 2. Unexplained decrease in appetite with a 7 pound weight loss over the past 3 weeks and extreme fatigue. Chest x-ray and computed tomography scan of the abdomen and pelvis were negative for any malignancy. She was seen and evaluated by dietitian. Continue protein supplement 3. Hyponatremia on admission possibly related to poor oral intake. She is to been started on normal saline. Sodium level showing improvement. 136 at discharge. 4. Sinus Tachycardia: Resolved. 5. Mildly elevated LFTs at discharge. AST 39 and ALT of 56. No abdominal pain. Recommend repeating LFTs in 1 week. Hospital course This is a 76-year-old female, patient of Dr. Maya. She has no significant past medical history. She's not on any medications at home. Patient reports Monday she started having left leg pain and swelling. Symptoms continued to progress and therefore she came into the emergency room for further evaluation. Venous Doppler showed evidence of a left leg DVT from the external iliac vein to the popliteal vein. Vascular surgery has been consulted. Patient was started on IV heparin in the emergency room. Patient reports that she is been laying on the couch on a lot over the last 3 weeks she's been very inactive which is unusual for her. She's been fatigued and has had a decrease in appetite for the past 3 weeks for no apparent reason. She's also reported a 7 pound weight loss. She reports no stomach pain no vomiting no diarrhea. She has been having regular bowel movements no blood in the stools. She denies any chest pain or shortness of breath. She denies any fevers chills or sweats. Denies any burning with urination. Patient reports that she's never had a colonoscopy completed. She also reports that she has not had a Pap smear and she even states mammogram since her kids were small. A chest x-ray and computed tomography scan the abdomen and pelvis have also been ordered in regards to this decrease in her appetite with weight loss. Patient had some hyponatremia on admission sodium of 131. She's had no recent traveling. And no family history of blood clots. Chest x-ray and computed tomography scan of the abdomen and pelvis with no evidence of malignancy. Patient was evaluated by dietitian. And they recommended protein supplements. Patient's eating most of her tray. Reports that her appetite has shown some improvement. As far as her left leg DVT. She was evaluated by vascular surgery they were are recommending to continue anticoagulation. Patient was started on Xarelto. She is been placed on the 15 mg twice a day for 21 days and then will need further dosing of the Xarelto outpatient. Continue the RUDI hose. She'll follow-up with vascular surgery outpatient. Patient is medically stable for discharge. Please refer to chart for any further details. I performed an examination of the patient and discussed their management with the physician Human Resources Advisor. I have reviewed the Physician Human Resources Advisor's notes and agree with the documented findings and plan of care Patient Condition at Discharge: Stable Plan - Discharge Summary New Discharge Prescriptions: New Rivaroxaban [Xarelto] 15 mg PO BID #42 tab Discharge Medication List Rivaroxaban [Xarelto] 15 mg PO BID #42 tab 05/11/17 [Rx] Follow up Appointment(s)/Referral(s): Patricia Maya MD [Primary Care Provider] - 1 Week Abdirashid Kothari MD [STAFF PHYSICIAN] - 2 Weeks Activity/Diet/Wound Care/Special Instructions: Diet: regular Activity: as tolerated Check CMP in 1 week Discharge Disposition: HOME SELF-CARE
[2017-05-11] MEDS: HEPARIN SODIUM,PORCINE/D5W PMX 25,000 UNIT in DEXTROSE/WATER 1 500ML.BAG IV SCH (12:16)
[2017-05-11] MEDS: SODIUM CHLORIDE 0.9% 1,000 ML IV SCH (13:28)
== END 2017-05-11 13:51 | disposition home or self-care (01) | DRG 300 ==
LOC: EC 18:36 → 4MS4W 22:09
PROVIDERS: ADMIT Internal Medicine; ATTEND Internal Medicine
DX: I82.422 Acute embolism and thrombosis of left iliac vein (principal); E87.1 Hypo-osmolality and hyponatremia; I82.432 Acute embolism and thrombosis of left popliteal vein; R63.4 Abnormal weight loss; R00.0 Tachycardia, unspecified; R53.83 Other fatigue; R74.0 Nonspecific elevation of levels of transaminase and lactic acid dehydrogenase [LDH]; Z71.3 Dietary counseling and surveillance; Z90.5 Acquired absence of kidney
CPT/HCPCS: 36415; 71020; 74176; 80053; 81003; 82150; 83605; 83690; 85025; 85610; 85730; 87040; 96361; 96374; 96375; 99284

== ENCOUNTER 2022-12-28 17:45 | Emergency (ER) | payer MEDICARE, OTHER ==
[2022-12-28 18:05] VITALS: RESP 18; TEMP 97
[2022-12-28] MEDS ORDERED: HYDROmorphone 0.5 MG/0.5 ML SYRINGE IVP STA (18:14)
[2022-12-28] MEDS ORDERED: RX INFO: IV CONTRAST WAS GIVEN 1 EACH MISC MISCELLANE PRN (18:14)
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
[2022-12-28 18:53] LABS: Basophils # (A) 0.1 k/uL (0-0.2); Basophils % (A) 1 %; Eosinophils # (A) 0.1 k/uL (0-0.7); Eosinophils % (A) 1 %; HCT 35.9 % (34.0-46.0); HGB 12.1 gm/dL (11.4-16.0); Lymphocytes # (A) 1.7 k/uL (1.0-4.8); Lymphocytes % (A) 35 %; MCH 32.9 pg (25.0-35.0); MCHC 33.8 g/dL (31.0-37.0); MCV 97.2 fL (80.0-100.0); Mean Platelet Volume 8.4; Monocytes # (A) 0.4 k/uL (0-1.0); Monocytes % (A) 8 %; Neutrophils # (A) 2.5 k/uL (1.3-7.7); Neutrophils % (A) 53 %; Platelet Count 147 k/uL (150-450); RBC 3.69 m/uL (3.80-5.40); RDW 12.9 % (11.5-15.5); WBC 4.8 k/uL (3.8-10.6)
[2022-12-28] MEDS ORDERED: ACETAMINOPHEN IV (For NPO) 1,000 MG in EMPTY BAG 1 BAG IVPB ONE (19:00)
[2022-12-28 19:02] LABS: Partial Thromboplastin Time 23.1 sec (22.0-30.0); Prothrombin Time 10.3 sec (9.0-12.0)
[2022-12-28 19:07] LABS: ALT 25 U/L (4-34); AST 34 U/L (14-36); African American GFR (CKD) 69 (>60 ml/min/1.73 sqM); Albumin 4.4 g/dL (3.5-5.0); Alcohol <10 mg/dL; Alkaline Phosphatase 95 U/L (38-126); Anion Gap 8 mmol/L; Blood Urea Nitrogen 14 mg/dL (7-17); Carbon Dioxide 29 mmol/L (22-30); Chloride 100 mmol/L (98-107); Glucose 112 mg/dL (74-99); Non-African American GFR(CKD) 60 (>60 ml/min/1.73 sqM); Sodium 137 mmol/L (137-145); Total Bilirubin 0.6 mg/dL (0.2-1.3); Total Protein 7.8 g/dL (6.3-8.2)
--- NOTE | 2022-12-28 19:46 | XR ---
EXAMINATION TYPE: XR pelvis AP view DATE OF EXAM: 12/28/2022 COMPARISON: NONE HISTORY: Pain TECHNIQUE: Single view FINDINGS: The pelvic ring is intact. The proximal femurs and hip joints are intact. Sacroiliac joints are intact IMPRESSION: Negative exam. No fracture seen.
--- NOTE | 2022-12-28 19:47 | XR ---
EXAMINATION TYPE: XR chest 1V portable DATE OF EXAM: 12/28/2022 COMPARISON: 05/08/2017 HISTORY: Pain TECHNIQUE: Single view FINDINGS: The heart is normal. There is some mild increased interstitial density at the lung bases. T horacic aorta is atheromatous. There are chest leads. There are no hilar masses. IMPRESSION: Pulmonary interstitial fibrosis at the lung bases. Normal heart. Lung markings increased compared to old exam.
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
[2022-12-28] MEDS ORDERED: hydrALAZINE HCL 20 MG/ML 1 ML VIAL IVP STA (20:09)
[2022-12-28 20:34] LABS: Amphetamine Screen,Urine Not Detected (NotDetected); Barbiturate Screen,Urine Not Detected (NotDetected); Benzodiazepines Screen,Urine Not Detected (NotDetected); Cocaine Screen,Urine Not Detected (NotDetected); Methadone Screen, Urine Not Detected (NotDetected); Opiate Screen,Urine Not Detected (NotDetected); Oxycodone Screen, Urine Not Detected (NotDetected); Phencyclidine Screen,Urine Not Detected (NotDetected); Tricyclic Antidepressant,Urine Not Detected (NotDetected); Urn Cannabinoid Scrn Not Detected (NotDetected)
[2022-12-28 21:08] VITALS: BP 169/97; PULSE 83
== END 2022-12-28 21:08 | disposition home or self-care (01) ==
LOC: EC 17:45
DX: S20.219A Contusion of unspecified front wall of thorax, initial encounter (principal); I10 Essential (primary) hypertension; V89.2XXA Person injured in unspecified motor-vehicle accident, traffic, initial encounter; Y92.410 Unspecified street and highway as the place of occurrence of the external cause
CPT/HCPCS: 36415; 86900; 86901; 80053; 84484; 85025; 85610; 85730; 86850; 80306; 80320; 72170; 71045; 71260; 99285; 96374; 96375; J0360; J0131; Q9967; 93005

== ENCOUNTER 2024-01-06 12:05 | Inpatient (IN) | payer MEDICARE ==
--- NOTE | 2024-01-06 12:46 | ED ---
General Adult HPI - General Chief complaint: Fall Stated complaint: FALL Time Seen by Provider: 01/06/24 12:38 Source: patient, family, RN notes reviewed, old records reviewed Mode of arrival: wheelchair Limitations: no limitations - History of Present Illness Initial comments: Patient is an 83-year-old female who presents emergency department after a fall. Patient was walking on snow and ice and fell on her side on cement. Believes she slipped on ice. Did not lose consciousness. States she may have bumped her head mildly but denies any head pain or headache. Is not on blood thinners. No LOC. Primary complaint is left hip pain. Denies any other acute injuries. Was having hard time walking around. Presents with her for further evaluation. Fall occurred approximately 1 hour ago. - Related Data Home Medications Medication Instructions Recorded Confirmed No Known Home Medications 01/06/24 01/06/24 Allergies Allergy/AdvReac Type Severity Reaction Status Date / Time No Known Allergies Allergy Verified 01/06/24 16:38 Review of Systems ROS Statement: Those systems with pertinent positive or pertinent negative responses have been documented in the HPI. Review of Systems: CONST: Denies fever EYES: Denies blurry vision ENT: Denies nasal congestion C/V: Denies Chest pain RESP: Denies shortness of breath GI: Denies abdominal pain : Denies dysuria SKIN: Denies rash. MSK: Endorses left hip pain NEURO: Denies headache ROS Other: All systems not noted in ROS Statement are negative. Past Medical History Past Medical History: No Reported History History of Any Multi-Drug Resistant Organisms: None Reported 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 Past Anesthesia/Blood Transfusion Reactions: No Reported Reaction Past Psychological History: No Psychological Hx Reported Smoking Status: Never smoker Past Alcohol Use History: None Reported Past Drug Use History: None Reported - Past Family History Father Family Medical History: No Reported History Mother Family Medical History: No Reported History General Exam - General Exam Comments Initial Comments: General: Appears in no acute distress. HEAD: Normal with no signs of head trauma. Negative Whiting sign. Negative raccoon eyes. EYES: PERRLA, EOMI, conjunctiva normal, no discharge. Pulls are 3 mm and equal bilaterally. ENT: Hearing grossly intact, normal oropharynx. RESPIRATORY: Clear breath sounds bilaterally. No wheezes, rales, or rhonchi. C/V: Regular rate and rhythm. S1 and S2 auscultated, no edema, peripheral pulses 2+ and intact throughout ABD: Abd is soft, nontender, nondistended EXT: No obvious deformity. No leg shortening. Tenderness to palpation over the left hip. No midline cervical, thoracic, lumbar spine tenderness to palpation. No step-offs or deformities of the spine. SKIN: No rashes or lesions observed on exposed skin. NEURO: Alert and oriented x 4. Cranial nerves II-XII intact. No focal sensory or strength deficits. GCS of 15. Reduced range of motion of the left hip secondary to pain. Limitations: no limitations Course Vital Signs 01/06/24 01/06/24 12:06 15:10 Temperature 97.5 F L 98.3 F Pulse Rate 72 82 Respiratory 16 18 Rate Blood Pressure 180/94 190/90 O2 Sat by Pulse 95 95 Oximetry Medical Decision Making - Medical Decision Making Was pt. sent in by a medical professional or institution (, PA, OUTPATIENT CODING SPECIALIST, urgent care, hospital, or correction...) When possible be specific @ -No Did you speak to anyone other than the patient for history (EMS, parent, family, police, friend...)? What history was obtained from this source @ -No Did you review nursing and triage notes (agree or disagree)? Why? @ -I reviewed and agree with nursing and triage notes Were old charts reviewed (outside hosp., previous admission, EMS record, old EKG, old radiological studies, urgent care reports/EKG's, correction records)? Report findings @ -No old charts were reviewed Differential Diagnosis (chest pain, altered mental status, abdominal pain women, abdominal pain men, vaginal bleeding, weakness, fever, dyspnea, syncope, headache, dizziness, GI bleed, back pain, seizure, CVA, palpatations, mental health, musculoskeletal)? @ -Differential Musculoskeletal Muscular strain, contusion, ligament sprain, fracture, arthritis, septic arthritis, bursitis, cellulitis, muscle spasm, nerve compression, DVT, arterial occlusion, herpes zoster, electrolyte abnormality, tumor.... This is not meant to be in all inclusive list EKG interpreted by me (3pts min.). @ -None done X-rays interpreted by me (1pt min.). @ -X-ray of the left hip and pelvis shows a left femoral neck fracture that is minimally displaced. CT interpreted by me (1pt min.). @ -None done U/S interpreted by me (1pt. min.). @ -None done What testing was considered but not performed or refused? (CT, X-rays, U/S, labs)? Why? @ -I offered CT brain due to the minor head trauma however after discussion wit h the patient both agree it is not required at this time. We will continue to monitor. What meds were considered but not given or refused? Why? @ -I offered analgesia medications for the patient however she declines them at this time. Is just asking for ice. Did you discuss the management of the patient with other professionals (professionals i.e. , PA, OUTPATIENT CODING SPECIALIST, lab, RT, psych nurse, child protective services social worker, ethologist, teacher, hearing officer, correctional counselor/case manager)? Give summary @ -Discussed with on-call orthopedic surgery Dr. De León who was in agreement with plan for admission for repair. Medicine consulted and I notified [facility] of the consult. Was smoking cessation discussed for >3mins.? @ -No Was critical care preformed (if so, how long)? @ -No Were there social determinants of health that impacted care today? How? (Homelessness, low income, unemployed, alcoholism, drug addiction, transpo rtation, low edu. Level, literacy, decrease access to med. care, senior care, rehab)? @ -No Was there de-escalation of care discussed even if they declined (Discuss DNR or withdrawal of care, Hospice)? DNR status @ -No What co-morbidities impacted this encounter? (DM, HTN, Smoking, COPD, CAD, Cancer, CVA, ARF, Chemo, Hep., AIDS, mental health diagnosis, sleep apnea, morbid obesity)? @ -None Was patient admitted / discharged? Hospital course, mention meds given and route, prescriptions, significant lab abnormalities, going to OR and other pertinent info. @ -Patient was a mechanical fall. Patient did suffer minor head trauma where she did bump her head on the ground however states she did not lose consciousness is not on blood thinners. Primary complaint is left hip pain. Exam unremarkable except for left hip pain. I did offer CT imaging of the brain due to her age however patient declines at this time. We will obtain left hip x-ray as well as pelvis x-ray. She was in agreement this plan. Was given ice for her left hip.X-ray reveals a left femoral neck fracture. I discussed with the patient, and she would like to avoid surgery if possible but I did discuss with her that typically these are repaired. I did reach out to on-call orthopedics Dr. De León who did state that these are almost always repaired is usually patient would otherwise likely end up nonambulatory at some point. The rate of nonunion is high. I did discuss this with the patient. She was in agreement with the plan for admission and repair. Patient made n.p.o. after midnight. Medicine consulted for medical management. Patient has no other acute complaints at this time. Undiagnosed new problem with uncertain prognosis? @ -No Drug Therapy requiring intensive monitoring for toxicity (Heparin, Nitro, Ins ulin, Cardizem)? @ -No Were any procedures done? @ -No Diagnosis/symptom? @ -Fall, left femoral neck fracture Acute, or Chronic, or Acute on Chronic? @ -Acute Uncomplicated (without systemic symptoms) or Complicated (systemic symptoms)? @ -Complicated Side effects of treatment? @ -None Exacerbation, Progression, or Severe Exacerbation] @ -No Poses a threat to life or bodily function? @ -Yes - Lab Data Result diagrams: 01/06/24 14:50 01/06/24 14:50 Disposition Clinical Impression: Fall, Fracture of femoral neck, left Disposition: ADMITTED IP TO THIS HOSP Condition: Stable Time of Disposition: 13:45
--- NOTE | 2024-01-06 13:01 | XR ---
EXAMINATION TYPE: XR Hip LT and AP Pelvis DATE OF EXAM: 01/06/2024 COMPARISON: NONE HISTORY: Pain following fall TECHNIQUE: A single AP view of the pelvis is obtained. Two views of the left hip are obtained. FINDINGS: There is no acute fracture/dislocation evident in the pelvis. The hip and sacroiliac joints appear s ymmetric and unremarkable. The overlying soft tissue appears unremarkable. There is a minimally displaced subcapital fracture of the left hip. There is no hip dislocation. No f ocal intraosseous abnormality is seen. IMPRESSION: 1. Minimally displaced subcapital fracture of the left hip. 2. No pelvic fracture.
[2024-01-06] MEDS ORDERED: NALOXONE 0.4 MG/ML 1 ML VIAL IV PRN (13:38)
[2024-01-06] MEDS ORDERED: ACETAMINOPHEN IV (For NPO) 1,000 MG in EMPTY BAG 1 BAG IVPB PRN (13:40)
[2024-01-06] MEDS ORDERED: HYDROmorphone 0.5 MG/0.5 ML SYRINGE IVP PRN ×2 (15:10)
[2024-01-06] MEDS ORDERED: traMADol 50 MG TAB PO PRN (15:10)
[2024-01-06] MEDS ORDERED: MAGNESIUM HYDROXIDE 2,400 MG/30 ML CUP PO PRN (15:10)
[2024-01-06 15:27] LABS: African American GFR (CKD) 74 (>60 ml/min/1.73 sqM); Anion Gap 9 mmol/L; Blood Urea Nitrogen 18 mg/dL (7-17); Calcium 9.3 mg/dL (8.4-10.2); Carbon Dioxide 23 mmol/L (22-30); Chloride 106 mmol/L (98-107); Glucose 108 mg/dL (74-99); Non-African American GFR(CKD) 64 (>60 ml/min/1.73 sqM); Sodium 138 mmol/L (137-145)
[2024-01-06 15:41] LABS: Potassium 4.5 mmol/L (3.5-5.1)
[2024-01-06 15:43] LABS: Basophils % (A) 0 %; Eosinophils % (A) 0 %; HCT 42.8 % (34.0-46.0); HGB 14.1 gm/dL (11.4-16.0); Lymphocytes # (A) 1.2 k/uL (1.0-4.8); Lymphocytes % (A) 13 %; MCH 32.4 pg (25.0-35.0); MCV 98.1 fL (80.0-100.0); Mean Platelet Volume 8.9; Monocytes # (A) 0.3 k/uL (0-1.0); Monocytes % (A) 3 %; Neutrophils # (A) 7.9 k/uL (1.3-7.7); Neutrophils % (A) 83 %; Platelet Count 139 k/uL (150-450); RBC 4.36 m/uL (3.80-5.40); RDW 13.3 % (11.5-15.5); WBC 9.5 k/uL (3.8-10.6)
[2024-01-06] MEDS: HYDROmorphone 0.5 MG/0.5 ML SYRINGE IVP PRN (16:07)
[2024-01-06] MEDS: LACTATED RINGERS 1,000 ML IV SCH (16:46)
[2024-01-06] MEDS: SODIUM CHLORIDE 0.9% 1,000 ML IV SCH (16:46)
--- NOTE | 2024-01-06 17:53 | P.CONS ---
History of Present Illness - Reason for Consult Consult date: 01/06/24 - Chief Complaint medical management, preoperative clearance - History of Present Illness 83-year-old woman with prior history of a provoked DVT presented after mechanical fall resulted in hip fracture. Medicine was consulted for medical management as well as preoperative clearance. Patient's METs estimation is greater than 4. 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 She takes care of all of her IADLs and ADLs independently without assistance. She does not take any medications. She has not had any prior poor reactions to anesthesia. Denies fevers, chills, nausea, vomiting, chest pain, palpitations, syncope, abdominal pain, constipation, diarrhea. In the emergency room, patient was afebrile, 180/94, heart rate 72, 95% on room air. CBC demonstrates mild thrombocytopenia to 139, otherwise unremarkable. Basic metabolic panel shows mild elevation of BUN to 18, otherwise unremarkable. Hip/pelvis x-ray demonstrates minimally displaced subcapital fracture of the left hip. All Systems reviewed and pertinent positives and negatives noted in HPI, all other symptoms are negative Gen: in no apparent distress, resting comfortably in bed Eyes: PERRL, no scleral injection or icterus HENT: normocephalic, atraumatic, good hearing acuity, moist mucous membranes Neck: no tracheal deviation, full range of motion Resp: good air exchange, breathing comfortably with no accessory muscle use, no tactile fremitus CVS: good distal perfusion x 4, no pitting edema GI: soft, NTTP, ND, no hepatosplenomegaly : no suprapubic tenderness, no CVAT, bunch catheter not present MSK: no clubbing, no cyanosis, no noted contractures of extremities Skin: no noted rashes, petechiae; temperature of skin is appropriate Neuro: moving all extremities without signs of weakness, CN II-XII intact Psych: cooperative, euthymic mood, insight and judgment intact Labs and imaging as above Assessment/plan: Preoperative clearance Left hip fracture -Operative repair per orthopedic team -NSQIP estimates risk of cardiac complication 8.5% to an average of 1.2%, patient may proceed to surgery without further needed testing as her risk factors are optimized at this time Hypertensive urgency -Likely related to pain, pain control per surgery, agree with Dilaudid as needed -Agree with Tylenol as needed -Clonidine 0.1 mg 3 times daily as needed for elevated blood pressure History of DVT -Would likely be a good candidate for direct thrombin inhibitor for DVT prophylaxis post hip surgery rather than aspirin Past Medical History Past Medical History: No Reported History History of Any Multi-Drug Resistant Organisms: None Reported 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 Past Anesthesia/Blood Transfusion Reactions: No Reported Reaction Past Psychological History: No Psychological Hx Reported Smoking Status: Never smoker Past Alcohol Use History: None Reported Past Drug Use History: None Reported - Past Family History Father Family Medical History: No Reported History Mother Family Medical History: No Reported History Medications and Allergies Home Medications Medication Instructions Recorded Confirmed Type No Known Home Medications 01/06/24 01/06/24 History Allergies Allergy/AdvReac Type Severity Reaction Status Date / Time No Known Allergies Allergy Verified 01/06/24 16:38 Physical Exam Osteopathic Statement: *. No significant issues noted on an osteopathic structural exam other than those noted in the History and Physical/Consult. Vitals: Vital Signs Temp Pulse Resp BP Pulse Ox 01/06/24 16:43 95 01/06/24 15:10 98.3 F 82 18 190/90 95 01/06/24 12:06 97.5 F L 72 16 180/94 95 Intake and Output 01/06/24 01/06/24 01/06/24 06:59 14:59 22:59 Other: Weight 62.596 kg 62.596 kg Results CBC & Chem 7: 01/06/24 14:50 01/06/24 14:50 Labs: Abnormal Lab Results - Last 24 Hours (Table) 01/06/24 01/06/24 Range/Units 14:50 14:50 Plt Count 139 L (150-450) k/uL Neutrophils # 7.9 H (1.3-7.7) k/uL BUN 18 H (7-17) mg/dL Glucose 108 H (74-99) mg/dL
[2024-01-06] MEDS: ACETAMINOPHEN TAB 325 MG TAB PO PRN (21:42)
[2024-01-06] MEDS: SENNOSIDES-DOCUSATE SODIUM 1 EACH TAB PO SCH (21:43)
[2024-01-07 10:12] LABS: BUN/Creat Ratio 15.91 Ratio (12.00-20.00); Blood Urea Nitrogen 17.5 mg/dL (9.0-27.0); Calcium 8.6 mg/dL (8.7-10.3); Carbon Dioxide 24.9 mmol/L (21.6-31.8); Chloride 103 mmol/L (96-109); Glucose 99 mg/dL (70-110); Sodium 139 mmol/L (135-145)
--- NOTE | 2024-01-07 10:54 | P.PN ---
Subjective Progress Note Date: 01/07/24 No new complaints. Anxiously anticipating surgery - scheduled today. Gen: in no apparent distress, resting comfortably in bed Eyes: PERRL, no scleral injection or icterus HENT: normocephalic, atraumatic, good hearing acuity, moist mucous membranes Neck: no tracheal deviation, full range of motion Resp: good air exchange, breathing comfortably with no accessory muscle use, no tactile fremitus CVS: good distal perfusion x 4, no pitting edema GI: soft, NTTP, ND, no hepatosplenomegaly : no suprapubic tenderness, no CVAT, bunch catheter not present MSK: no clubbing, no cyanosis, no noted contractures of extremities Skin: no noted rashes, petechiae; temperature of skin is appropriate Neuro: moving all extremities without signs of weakness, CN II-XII intact Psych: cooperative, euthymic mood, insight and judgment intact Hospital Course: 83-year-old woman with prior history of a provoked DVT presented after mechanical fall resulted in hip fracture. Medicine was consulted for medical management as well as preoperative clearance. In the emergency room, patient was afebrile, 180/94, heart rate 72, 95% on room air. CBC demonstrates mild thrombocytopenia to 139, otherwise unremarkable. Basic metabolic panel shows mild elevation of BUN to 18, otherwise unremarkable. Hip/pelvis x-ray demon strates minimally displaced subcapital fracture of the left hip. Assessment/plan: Preoperative clearance Left hip fracture -Operative repair per orthopedic team -NSQIP estimates risk of cardiac complication 8.5% to an average of 1.2%, patient may proceed to surgery without further needed testing as her risk factors are optimized at this time Hypertensive urgency -Likely related to pain, pain control per surgery, agree with Dilaudid as needed -Agree with Tylenol as needed -Clonidine 0.1 mg 3 times daily as needed for elevated blood pressure History of DVT -Would likely be a good candidate for direct thrombin inhibitor for DVT prophylaxis post hip surgery rather than aspirin Objective - Vital Signs Vital signs: Vital Signs Temp 98.4 F 01/07/24 07:41 Pulse 85 01/07/24 07:41 Resp 18 01/07/24 07:41 BP 162/82 01/07/24 07:41 Pulse Ox 96 01/07/24 07:41 FiO2 Intake & Output 01/06/24 01/07/24 01/07/24 18:59 06:59 18:59 Weight 62.596 kg Other: Voiding Method External Catheter # Voids 5 - Labs CBC & Chem 7: 01/06/24 14:50 01/07/24 05:07 Labs: Abnormal Lab Results - Last 24 Hours (Table) 01/06/24 01/06/24 01/07/24 Range/Units 14:50 14:50 05:07 Plt Count 139 L (150-450) k/uL Neutrophils # 7.9 H (1.3-7.7) k/uL BUN 18 H (7-17) mg/dL Est GFR (CKD-EPI) 50 L (>=60) Glucose 108 H (74-99) mg/dL Calcium 8.6 L (8.7-10.3) mg/dL
[2024-01-07 11:16] LABS: Basophils # (A) 0.06 X 10*3/uL (0.00-0.10); Basophils % (A) 0.6 %; Eosinophils # (A) 0.12 X 10*3/uL (0.04-0.35); Eosinophils % (A) 1.2 %; HCT 37.2 % (37.2-46.3); HGB 12.4 g/dL (12.0-15.0); Lymphocytes # (A) 1.25 X 10*3/uL (0.90-5.00); Lymphocytes % (A) 12.5 %; MCH 32.5 pg (27.0-32.0); MCHC 33.3 g/dL (32.0-37.0); MCV 97.6 FL (80.0-97.0); NRBC Per 100 WBC 0 X 10*3/uL (0.00-0.01); Neutrophils # (A) 7.41 X 10*3/uL (1.80-7.70); Neutrophils % (A) 74.3 %; Platelet Count 86 X 10*3/uL (140-440); RBC 3.81 X 10*6/uL (4.10-5.20); RBC Morphology Normal (Normal); RDW 13.3 % (11.5-14.5); WBC 9.98 X 10*3/uL (4.50-10.00)
[2024-01-07] MEDS: MULTIVITAMINS, THERA 1 EACH TAB PO SCH (12:24)
[2024-01-07] MEDS: LACTATED RINGERS 1,000 ML IV ONE (12:54)
[2024-01-07] MEDS: MIDAZOLAM 2 MG/2 ML VIAL IVP ONE (12:54)
[2024-01-07] MEDS ORDERED: fentaNYL (PF) 50 MCG/ML 2 ML AMP ONE (13:35)
[2024-01-07] MEDS ORDERED: PROPOFOL 10 MG/ML 20 ML VIAL IV ONE (13:35)
[2024-01-07] MEDS ORDERED: SUCCINYLCHOLINE CHLORIDE 200 MG/10 ML VIAL IV ONE (13:35)
[2024-01-07] MEDS ORDERED: LIDOCAINE 1% INJ 10MG/ML (20 ML MDV) ONE (13:35)
[2024-01-07] MEDS: LABETALOL 5 MG/ML VIAL MDV IVP ONE (13:36)
[2024-01-07] MEDS: ceFAZolin 1,000 MG VIAL IVPB ONE (13:39)
--- NOTE | 2024-01-07 13:39 | P.HPOR ---
History of Present Illness H&P Date: 01/07/24 Chief Complaint: Left hip fracure Patient is an 83-year-old female who was admitted through the emergency department after a fall, 01/06/24. Patient was walking on snow and ice and fell on her side on cement. She believes she slipped on ice. She may have bumped he r head mildly but denies any head pain or headache and did not lose consciousness. Is not on blood thinners. She has left hip pain as expected . Denies any other acute injuries. Was having difficulty ambulating. Has no other complaints. 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 Review of Systems All systems: negative Constitutional: Denies chills, Denies fever Eyes: denies blurred vision, denies pain Ears, nose, mouth and throat: Denies headache, Denies sore throat Cardiovascular: Denies chest pain, Denies shortness of breath Respiratory: Denies cough Gastrointestinal: Denies abdominal pain, Denies diarrhea, Denies nausea, Denies vomiting Genitourinary: Denies dysuria, Denies hematuria Musculoskeletal: Denies myalgias Integumentary: Denies pruritus, Denies rash Neurological: Denies numbness, Denies weakness Psychiatric: Denies anxiety, Denies depression Endocrine: Denies fatigue, Denies weight change Past Medical History Past Medical History: No Reported History History of Any Multi-Drug Resistant Organisms: None Reported 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 Past Anesthesia/Blood Transfusion Reactions: No Reported Reaction Past Psychological History: No Psychological Hx Reported Smoking Status: Never smoker Past Alcohol Use History: None Reported Past Drug Use History: None Reported - Past Family History Father Family Medical History: No Reported History Mother Family Medical History: No Reported History Medications and Allergies Home Medications Medication Instructions Recorded Confirmed Type No Known Home Medications 01/06/24 01/06/24 History Allergies Allergy/AdvReac Type Severity Reaction Status Date / Time No Known Allergies Allergy Verified 01/06/24 16:38 Physical Examination Osteopathic Statement: *. No significant issues noted on an osteopathic structural exam other than those noted in the History and Physical/Consult. Inspection of the lower extremities shows no significant deformity. There are no wounds, erythema or ecchymoses. The left knee is nontender without effusion. She has painless range of motion of the ankle foot and toes. Range of motion of the left hip is not tested due to fracture. Neurovascular status is intact throughout the lower extremity with motor and sensation fully intact. Calf is soft and nontender. 2+ dorsalis pedis pulse and less than 2 second cap refill is present. - Cervical Spine Neck pain: none Tenderness with palpation: none Full ROM: yes ROM: flexion: normal ROM: extension: normal ROM: rotation right: normal ROM: rotation left: normal ROM: lateral flexion right: normal ROM: lateral flexion left: normal - Lumbar Spine Back pain: none Tenderness with palpation: none Appearance: normal Full ROM: yes ROM: flexion: normal ROM: extension: normal ROM: rotation right: normal ROM: rotation left: normal ROM: lateral flexion right: normal ROM: lateral flexion left: normal Results Xray of left hip shows minimally displaced subcapital femoral neck fracture. Valgus impacted with less than 30 degrees of angulation on the lateral view - Labs Labs: Abnormal Lab Results - Last 24 Hours (Table) 01/06/24 01/06/24 01/07/24 Range/Units 14:50 14:50 05:07 RBC 3.81 L (4.10-5.20) X 10*6/uL MCV 97.6 H (80.0-97.0) FL MCH 32.5 H (27.0-32.0) pg Plt Count 139 L 86 L (150-450) k/uL Neutrophils # 7.9 H (1.3-7.7) k/uL Monocytes # 1.10 H (0.20-1.00) X 10*3/uL BUN 18 H (7-17) mg/dL Est GFR (CKD-EPI) (>=60) Glucose 108 H (74-99) mg/dL Calcium (8.7-10.3) mg/dL 01/07/24 Range/Units 05:07 RBC (4.10-5.20) X 10*6/uL MCV (80.0-97.0) FL MCH (27.0-32.0) pg Plt Count (150-450) k/uL Neutrophils # (1.3-7.7) k/uL Monocytes # (0.20-1.00) X 10*3/uL BUN (7-17) mg/dL Est GFR (CKD-EPI) 50 L (>=60) Glucose (74-99) mg/dL Calcium 8.6 L (8.7-10.3) mg/dL H & H 01/06/24 01/07/24 Range/Units 14:50 05:07 Hgb 14.1 12.4 (11.4-16.0) gm/dL Hct 42.8 37.2 (34.0-46.0) % Result Diagrams: 01/08/24 08:12 01/08/24 08:12 - Diagnostic results Hip MRI: image reviewed Assessment and Plan (1) Fracture of femoral neck, left Narrative/Plan: Plan is to proceed with surgical intervention including percutaneous pinning of left hip fracture per Dr. De León. Patient understands possible risks, complications and benefits. She desires to proceed. She has been NPO and procedure/consent is ordered. She will resume routine postop orthopedic protocol including pain management, wound care, PT, DVT prophylaxis and medical management. Patient was seen and examined. The patient had a ground level fall today sustaining a hip fracture. She is otherwise healthy and this appears to be an isolated injury. All imaging was reviewed. She has a valgus impacted femoral neck fracture that we will treat with percutaneous pinning. The patient is a [employer] and would like to avoid any unnecessary medical procedures. We discussed the necessity of this procedure to allow her to ambulate again. She is in agreement with surgical intervention. Current Visit: Yes Status: Acute Priority: Medium Code(s): S72.002A - FRACTURE OF UNSP PART OF NECK OF LEFT FEMUR, INIT SNOMED Code(s): 6771429 Time with Patient: Less than 30
--- NOTE | 2024-01-07 14:35 | XR ---
INDICATION: Patient age:Female; 83 years old; Reason for study: Intraoperative fluoroscopic images. COMPARISON: Hip radiograph 01/06/2024 TECHNIQUE: Multiple intraoperative fluoroscopic images were taken with a total of 0.49 minutes of f luoroscopy time. FINDINGS/IMPRESSION: Please see surgeon's operation report for details in EPIC.
--- NOTE | 2024-01-07 15:21 | P.OP ---
Date of Procedure: 01/07/24 Preoperative Diagnosis: Left valgus impacted subcapital femoral neck fracture Postoperative Diagnosis: Left displaced femoral neck fracture Procedure(s) Performed: Examination under anesthesia Anesthesia: RAMESH Surgeon: Pauline De León Estimated Blood Loss (ml): 0 Condition: stable Disposition: PACU Indications for Procedure: The patient suffered a ground level fall sustaining a subcapital femoral neck fracture. Preop imaging revealed a valgus impacted pattern with less than 30 of angulation on a lateral. The patient was in agreement with fixation with cannulated screws. Operative Findings: Displaced femoral neck fracture with 50% posterior translation Description of Procedure: Informed consent was obtained from the patient and the operative site was marked. She was then brought back to the OR were general anesthesia was provided by the anesthesia team. She was then moved to the JI table. The area was prepped and draped in normal sterile fashion. Fluoroscopic views were obtained. They showed a loss of the valgus impaction on the AP. On the lateral view, the fracture was translated posteriorly about 50%. The decision was made to cancel the pinning. Given the change in displacement, this fracture pattern is more unstable than initially appreciated and makes nonunion with pinning likely. This is better suited to a davidson arthroplasty. The patient was aroused by the anesthesia team. We will plan to perform a davidson hip arthroplasty tomorrow when the instrumentation is available.
[2024-01-07] MEDS: cloNIDine HCL 0.1 MG TAB PO PRN (15:48)
[2024-01-08 08:49] LABS: African American GFR (CKD) 79 (>60 ml/min/1.73 sqM); Anion Gap 8 mmol/L; Blood Urea Nitrogen 18 mg/dL (7-17); Calcium 8.4 mg/dL (8.4-10.2); Carbon Dioxide 20 mmol/L (22-30); Chloride 107 mmol/L (98-107); Glucose 106 mg/dL (74-99); Non-African American GFR(CKD) 68 (>60 ml/min/1.73 sqM); Potassium 3.7 mmol/L (3.5-5.1); Sodium 135 mmol/L (137-145)
--- NOTE | 2024-01-08 11:20 | P.PN ---
Subjective Progress Note Date: 01/08/24 No new complaints. Had examination under anesthesia yesterday and found to have more unstable fracture than initially anticipated by imaging - she was aroused with plan to do hip replacement. Gen: in no apparent distress, resting comfortably in bed Eyes: PERRL, no scleral injection or icterus HENT: normocephalic, atraumatic, good hearing acuity, moist mucous membranes Neck: no tracheal deviation, full range of motion Resp: good air exchange, breathing comfortably with no accessory muscle use, no tactile fremitus CVS: good distal perfusion x 4, no pitting edema GI: soft, NTTP, ND, no hepatosplenomegaly : no suprapubic tenderness, no CVAT, bunch catheter not present MSK: no clubbing, no cyanosis, no noted contractures of extremities Skin: no noted rashes, petechiae; temperature of skin is appropriate Neuro: moving all extremities without signs of weakness, CN II-XII intact Psych: cooperative, euthymic mood, insight and judgment intact Hospital Course: 83-year-old woman with prior history of a provoked DVT presented after mechanical fall resulted in hip fracture. Medicine was consulted for medical management as well as preoperative clearance. In the emergency room, patient was afebrile, 180/94, heart rate 72, 95% on room air. CBC demonstrates mild thrombocytopenia to 139, otherwise unremarkable. Basic metabolic panel shows mild elevation of BUN to 18, otherwise unremarkable. Hip/pelvis x-ray demonstrates minimally displaced subcapital fracture of the left hip. Assessment/plan: Preoperative clearance Left hip fracture -Operative repair per orthopedic team -NSQIP estimates risk of cardiac complication 8.5% to an average of 1.2%, patient may proceed to surgery without further needed testing as her risk factors are optimized at this time Hypertensive urgency -Likely related to pain, pain control per surgery, agree with Dilaudid as needed -Agree with Tylenol as needed -Clonidine 0.1 mg 3 times daily as needed for elevated blood pressure History of DVT -Would likely be a good candidate for direct thrombin inhibitor for DVT prophylaxis post hip surgery rather than aspirin Objective - Vital Signs Vital signs: Vital Signs Temp 98.7 F 01/08/24 07:07 Pulse 113 H 01/08/24 07:07 Resp 18 01/08/24 07:07 BP 162/89 01/08/24 07:07 Pulse Ox 90 L 03/25/24 09:06 FiO2 Intake & Output 01/07/24 01/08/24 01/08/24 18:59 06:59 18:59 Intake Total 500 Output Total 1500 850 500 Balance -1000 -850 -500 Intake: IV 500 Output: Urine 1500 850 500 Other: Voiding Method Indwelling Catheter - Labs CBC & Chem 7: 01/07/24 05:07 01/08/24 08:12 Labs: Abnormal Lab Results - Last 24 Hours (Table) 01/07/24 01/08/24 Range/Units 05:07 08:12 RBC 3.81 L (4.10-5.20) X 10*6/uL MCV 97.6 H (80.0-97.0) FL MCH 32.5 H (27.0-32.0) pg Plt Count 86 L (140-440) X 10*3/uL Monocytes # 1.10 H (0.20-1.00) X 10*3/uL Sodium 135 L (137-145) mmol/L Carbon Dioxide 20 L (22-30) mmol/L BUN 18 H (7-17) mg/dL Glucose 106 H (74-99) mg/dL
[2024-01-08 11:25] LABS: Basophils # (A) 0.05 X 10*3/uL (0.00-0.10); Basophils % (A) 0.6 %; Eosinophils # (A) 0.09 X 10*3/uL (0.04-0.35); HCT 38.4 % (37.2-46.3); HGB 12.3 g/dL (12.0-15.0); MCH 31.6 pg (27.0-32.0); MCV 98.7 FL (80.0-97.0); Mean Platelet Volume 10.9 FL (9.5-12.2); Monocytes # (A) 0.92 X 10*3/uL (0.20-1.00); Monocytes % (A) 10.6 %; NRBC Per 100 WBC 0 X 10*3/uL (0.00-0.01); Neutrophils % (A) 72.6 %; Platelet Count 105 X 10*3/uL (140-440); RBC 3.89 X 10*6/uL (4.10-5.20); RDW 13.4 % (11.5-14.5); WBC 8.68 X 10*3/uL (4.50-10.00)
--- NOTE | 2024-01-08 11:28 | P.PN ---
Subjective Progress Note Date: 01/08/24 Principal diagnosis: Left femoral neck fracture. Patient is an 83-year-old female who was admitted through the emergency department after a fall, 01/06/24. Patient was walking on snow and ice and fell on her side on cement. She Believes she slipped on ice. She states that she did not lose consciousness. States she may have bumped her head mildly but denies any head pain or headache. Is not on blood thinners. She has left hip pain as expected . Denies any other acute injuries. Was having difficulty ambulating. Has no other complaints. Patient was taken to surgery on 01/06/2025 with attempt to perform a pinning of the hip. The fracture was found to be more displaced and surgery was canceled. She is scheduled for hemiarthroplasty of left hip today. Objective - Vital Signs Vital signs: Vital Signs Temp 98.7 F 01/08/24 07:07 Pulse 113 H 01/08/24 07:07 Resp 18 01/08/24 08:40 BP 162/89 01/08/24 07:07 Pulse Ox 90 L 01/08/24 09:06 FiO2 Intake & Output 01/07/24 01/08/24 01/08/24 18:59 06:59 18:59 Intake Total 500 Output Total 1500 850 500 Balance -1000 -850 -500 Intake: IV 500 Output: Urine 1500 850 500 Other: Voiding Method Indwelling Catheter - Exam This is an 83-year-old female in no acute distress. She is alert and oriented x 3. Family is present at bedside. She has no new complaints or concerns today. She is awaiting surgical intervention. - Labs CBC & Chem 7: 01/07/24 05:07 01/08/24 08:12 Labs: Abnormal Lab Results - Last 24 Hours (Table) 01/08/24 Range/Units 08:12 Sodium 135 L (137-145) mmol/L Carbon Dioxide 20 L (22-30) mmol/L BUN 18 H (7-17) mg/dL Glucose 106 H (74-99) mg/dL Assessment and Plan (1) Fall Current Visit: Yes Status: Acute Code(s): W19.XXXA - UNSPECIFIED FALL, INITIAL ENCOUNTER SNOMED Code(s): 8037498 (2) Fracture of femoral neck, left Current Visit: Yes Status: Acute Priority: Medium Code(s): S72.002A - FRACTURE OF UNSP PART OF NECK OF LEFT FEMUR, INIT SNOMED Code(s): 6583252 Plan: The clinical findings are discussed with the patient and her family. We are awaiting surgery today for hemiarthroplasty of left hip. We discussed the potential need for inpatient rehab postoperatively.
[2024-01-08] MEDS: IV FLUID CONTINUATION 300 ML IV ONE (12:49)
[2024-01-08] MEDS: ONDANSETRON 4 MG/2 ML VIAL IVP PRN (12:49)
[2024-01-08] MEDS: DEXAMETHASONE SOD PHOSPHATE 4 MG/ML 1 ML VIAL IVP ONE (12:50)
[2024-01-08] MEDS: MIDAZOLAM 2 MG/2 ML VIAL IVP ONE (12:57)
--- NOTE | 2024-01-08 13:10 | P.ANPRN ---
Procedure Note - Anesthesia - Nerve Block Performed Left Keith Single Time Out Performed: Yes Date of Procedure: 01/08/24 Procedure Start Time: 12:56 Procedure Stop Time: 13:01 Location of Patient: PreOp Indication: Acute Post-Operative Pain, Analgesia, Requested by Surgeon Sedation Type: Sedate with meaningful contact maintained Preparation: Sterile Prep Position: Supine Catheter: None Needle Types: Pajunk Needle Gauge: 21 Ultrasound used to visualize needle placement: Yes Ultrasound used to observe medication spread: Yes Injectate: 0.5% Ropivacaine (see comment for volume) ([id number]+decadron 4mg) Blood Aspirated: No Pain Paresthesia on Injection Noted: No Resistance on Injection: Normal Image Stored and Saved: Yes Events: Uneventful and Well Tolerated
[2024-01-08] MEDS ORDERED: DEXAMETHASONE SOD PHOSPHATE 4 MG/ML 1 ML VIAL ONE (13:29)
[2024-01-08] MEDS ORDERED: ROPIVACAINE 5 MG/ML 30 ML VIAL ONE (13:29)
[2024-01-08] MEDS ORDERED: PROPOFOL 10 MG/ML 20 ML VIAL IV ONE (13:29)
[2024-01-08] MEDS ORDERED: fentaNYL (PF) 50 MCG/ML 2 ML AMP ONE (13:29)
[2024-01-08] MEDS ORDERED: SODIUM CHLORIDE 0.9% (PF) 10 ML VIAL ONE (13:29)
[2024-01-08] MEDS ORDERED: TRANEXAMIC 1,000 MG/100ML-NACL PREMIX BAG ONE (13:29)
[2024-01-08] MEDS: SODIUM CHLORIDE 0.9% 100 ML with ceFAZolin 2,000 MG IV ONE (13:31)
[2024-01-08] MEDS: LACTATED RINGERS 1,000 ML IV ONE ×3 (14:06→18:25)
[2024-01-08] MEDS: ceFAZolin 1,000 MG in SODIUM CHLORIDE 0.9% 1,000 ML IRRIGATION ONE (14:07)
[2024-01-08] MEDS ORDERED: NALOXONE 0.4 MG/ML 1 ML VIAL IV PRN (17:21)
[2024-01-08] MEDS: ENALAPRILAT 1.25 MG/ML 1 ML VIAL IVP ONE (17:40)
--- NOTE | 2024-01-08 18:02 | XR ---
Left hip HISTORY: Postop arthroplasty. COMPARISON: 01/07/2024 TECHNIQUE: Single portable AP view of the left hip was obtained. FINDINGS: There has been a total left hip arthroplasty. There is mild soft tissue gas consistent with recent mckeon rgery. There is near-anatomic alignment and there is no acute fracture. IMPRESSION: Normal-appearing total left hip arthroplasty.
[2024-01-08] MEDS: hydrALAZINE HCL 20 MG/ML 1 ML VIAL IVP ONE (18:12)
[2024-01-08] MEDS: ASPIRIN 81 MG PO SCH (20:42)
--- NOTE | 2024-01-08 20:56 | P.OP ---
Date of Procedure: 01/08/24 Preoperative Diagnosis: Left femoral neck fracture, displaced Postoperative Diagnosis: Left femoral neck fracture, displaced Procedure(s) Performed: Left hip hemiarthroplasty Implants: Hiram Accolae cemented hip stem Size 5, with 45mm bipolar head Anesthesia: spinal Surgeon: Pauline De León IV fluids (ml): 150 Condition: stable Disposition: PACU Indications for Procedure: Patient had a ground level fall that resulted in a femoral neck fracture. Initially XR's revealed a valgus impacted pattern but examination under fluoro after positioning for cannulated screws revealed a displaced fracture. We then decided to proceed with a hemiarthroplasty. Operative Findings: displace subcapital femoral neck fracture Description of Procedure: The patient, operative extremity, and procedure were identified in the preop holding area. The patient was brought back to the OR and a spinal anesthetic was provided by the anesthesia team. She was then positioned on the OR table with a peg board positioner in a lateral decubitus position. The extremtiy was then prepped and draped in normal sterile fashion. A lateral approach was utilized. First a longitudinal incision was made over the greater trochanter extending proximally towards the tubercle of the iliac crest and distally along the femur. Dissection was carried down to the IT band. This was incised longitudinally just posterior to the tensor fascia juan carlos. A charnley retractor was inserted. Next the gluteus medius is identified and the bursa overtop was removed. The distal two thirds of the gluteus medius was transected from the trochanter leaving a tendonous cuff. The medius was then tucked under the charnley retractor to expose the capsule. A T shaped arthrotomy was performed. Fracture hematoma was evacuated. Fernández retractors were inserted along the neck and the capsule flaps were tagged. The leg was then externally rotated and the hip flexed to expose the neck. A neck cut was made about 15mm from the inferior trochanter. The femoral head was then retrieved and measured to be 45mm. The 45mm femoral head trial was inserted with good suction. The leg was placed in 90/90 and the femoral neck elevator was inserted. The dye box operator was used to remove any remaining superior neck. The starting awl was used to identify the canal followed by the lateral rasp. Serial broaches were used and a size 5 stem showed good fit. Version was matched with the [place] neck at about 15 degrees of anteversion. Initial reduction was too tight and the calcar planer was used to modify the neck cut. Afterwhich a standard neck and neutral head were trialed and found to have good stability with ROM testing and minimal shuck. The canal was then prepped for cement. The canal was irrigated with pulse lavage. The cement restrictor was inserted. A lap sponge was inserted to dry the canal. A lap was placed in the acetabulum to protect from extruded cement. Once the cement the doughy, it was inserted with a cement gun. It was then finger packed into the canal. The stem was then inserted with the collar sitting on the neck cut and in the proper version. This was held in position while the cement cured. A standard trial head was placed and the decision was made to increase the length with a +4. Reduction showed some shortening as compared to the contralateral leg but a stable joint. This was selected as the final size. The inner head was impacted into place and the outer component placed overtop. Final reduction and testing showed minimal shuck and a stable joint. The final construct was irrigated. The capsule was repaired with ethibond suture. The gluteus medius was repaired to the greater trochanter with ethibond through the tendinous cuff as well as through bone. The IT band was then repaired with a mix of ethibond and 0 vicryl. The remainder of the wound was closed in a layered fashion with 0 vicryl, 3.0 vicryl, 4.0 monocryl, and skin glue. Patient was placed in an abduction pillow, aroused by the anesthesia team, and brought back to PACU in stable condition.
[2024-01-09 11:43] LABS: Calcium 8.4 mg/dL (8.7-10.3); Carbon Dioxide 22.3 mmol/L (21.6-31.8); Chloride 105 mmol/L (96-109); Glucose 101 mg/dL (70-110); Potassium 3.8 mmol/L (3.5-5.5); Sodium 137 mmol/L (135-145)
[2024-01-09 12:15] LABS: HCT 33.6 % (37.2-46.3); HGB 11.3 g/dL (12.0-15.0); MCH 32.1 pg (27.0-32.0); MCHC 33.6 g/dL (32.0-37.0); MCV 95.5 FL (80.0-97.0); Mean Platelet Volume 11.7 FL (9.5-12.2); NRBC Per 100 WBC 0 X 10*3/uL (0.00-0.01); Platelet Count 103 X 10*3/uL (140-440); RBC 3.52 X 10*6/uL (4.10-5.20); RDW 13.3 % (11.5-14.5); WBC 11.36 X 10*3/uL (4.50-10.00)
--- NOTE | 2024-01-09 12:16 | P.PN ---
Subjective Progress Note Date: 01/09/24 This is an 83-year-old fe male who is status post left hip hemiarthroplasty. This is postoperative day #1 and patient is seen and evaluated at bedside today. Patient states that her pain is well-controlled and she was able to get up to a chair with physical therapy today. Patient denies any new complaints today. Objective - Vital Signs Vital signs: Vital Signs Temp 98.5 F 01/09/24 06:49 Pulse 94 01/09/24 06:49 Resp 18 01/09/24 06:49 BP 165/91 01/09/24 06:49 Pulse Ox 92 L 01/09/24 06:49 FiO2 Intake & Output 01/08/24 01/09/24 01/09/24 18:59 06:59 18:59 Intake Total 1206 Output Total 1010 350 Balance 196 -350 Weight 62.596 kg Intake: IV 1206 Output: Urine 860 350 Estimated Blood Loss 150 Other: Voiding Method Indwelling Catheter Indwelling Catheter - Exam Vital signs are stable. Patient is in no acute distress and is alert and oriented 3. Calf is soft and nontender to palpation. Dressing is clean, dry, and intact. Patient has full foot and ankle motion without pain or difficulty. Sensation intact. Neurovascular status and circulatory status are intact. - Labs CBC & Chem 7: 01/08/24 08:12 01/09/24 06:03 Labs: Abnormal Lab Results - Last 24 Hours (Table) 01/09/24 Range/Units 06:03 Est GFR (CKD-EPI) 56 L (>=60) BUN/Creatinine Ratio 23.00 H (12.00-20.00) Ratio Calcium 8.4 L (8.7-10.3) mg/dL Assessment and Plan (1) S/P hip hemiarthroplasty Current Visit: Yes Status: Acute Code(s): Z96.649 - PRESENCE OF UNSPECIFIED ARTIFICIAL HIP JOINT SNOMED Code(s): 338793130 (2) Fall Current Visit: Yes Status: Acute Code(s): W19.XXXA - UNSPECIFIED FALL, INITIAL ENCOUNTER SNOMED Code(s): 1615086 (3) Fracture of femoral neck, left Current Visit: Yes Status: Acute Priority: Medium Code(s): S72.002A - FRACTURE OF UNSP PART OF NECK OF LEFT FEMUR, INIT SNOMED Code(s): 0757632 Plan: Continue routine postop care and pain control. Continue hip dislocation precautions and use of abductor pillow for 6 weeks. Continue anticoagulation. Weightbearing as tolerated with a walker. Leave dressing in place for 7 days. Appreciate input from internal medicine. Anticipate discharge to ECF in the next 24-48 hours.
--- NOTE | 2024-01-09 13:05 | P.PN ---
Subjective Progress Note Date: 01/09/24 83-year-old woman with prior history of a provoked DVT presented after mechanical fall resulted in hip fracture. Medicine was consulted for medical management as well as preoperative clearance. In the emergency room, patient was afebrile, 180/94, heart rate 72, 95% on room air. CBC demonstrates mild th rombocytopenia to 139, otherwise unremarkable. Basic metabolic panel shows mild elevation of BUN to 18, otherwise unremarkable. Hip/pelvis x-ray demonstrates minimally displaced subcapital fracture of the left hip. She underwent L hip arthroplasty on 01/07. 01/08 Patient was seen and examined. Well controlled pain in her left hip. No bowel movement yet. Not sure about IPR vs SNF vs home. CBC WBC 11.36 Hg 11.3 Hct 33.6 Plt 103. BMP GFR 56, BUN/Cr 23, Ca 8.4. General: non toxic, no distress, appears at stated age Derm: warm, dry Head: atraumatic, normocephalic, symmetric Eyes: EOMI, no lid lag, anicteric sclera Mouth: no lip lesion, mucus membranes moist Cardiovascular: S1S2 reg, no murmur Lungs: Clear to auscultation bilateral, no rhonchi, no rales , no accessory muscle use Ext: no gross muscle atrophy, no edema, no contractures : Yadav catheter present Neuro: no focal neuro deficits Psych: Alert, oriented, appropriate affect Based on my assessment of this patient, this patient meets a moderate complexity level of care. Patient has an acute diagnosis of left hip fracture status post L hip arthroplasty that poses a threat to life or bodily function. Leukocytosis: Reactive. No signs of active infection. Continue to monitor. Acute blood loss anemia: Expected result of surgery. Trend. Transfuse if Hg < 7. Thrombocytopenia: Unknown etiology. Follow PCP for further workup. Prerenal azotemia: NS at 75 cc/hr. Chronic conditions: History of DVT CODE STATUS: FULL CODE. DVT Prophylaxis: Eliquis GI Prophylaxis: Designated medical POA if patient is not able to make medical decisions for themselves: I have reviewed the following industry consultant notes: Orthopedic Sx I have reviewed the results of the following tests: CBC, BMP I have ordered the following tests: I have discussed the care of this patient with the following independent historian: Son in law, case management. I have independently interpreted the following test below: I have discussed the management of this patient with the following physician: Objective - Vital Signs Vital signs: Vital Signs Temp 98.5 F 01/09/24 06:49 Pulse 94 01/09/24 06:49 Resp 18 01/09/24 06:49 BP 165/91 01/09/24 06:49 Pulse Ox 92 L 01/09/24 06:49 FiO2 Intake & Output 01/08/24 01/09/24 01/09/24 18:59 06:59 18:59 Intake Total 1206 Output Total 1010 350 Balance 196 -350 Weight 62.596 kg Intake: IV 1206 Output: Urine 860 350 Estimated Blood Loss 150 Other: Voiding Method Indwelling Catheter Indwelling Catheter - Labs CBC & Chem 7: 01/09/24 06:03 01/09/24 06:03 Labs: Abnormal Lab Results - Last 24 Hours (Table) 01/09/24 01/09/24 Range/Units 06:03 06:03 WBC 11.36 H (4.50-10.00) X 10*3/uL RBC 3.52 L (4.10-5.20) X 10*6/uL Hgb 11.3 L (12.0-15.0) g/dL Hct 33.6 L (37.2-46.3) % MCH 32.1 H (27.0-32.0) pg Plt Count 103 L (140-440) X 10*3/uL Est GFR (CKD-EPI) 56 L (>=60) BUN/Creatinine Ratio 23.00 H (12.00-20.00) Ratio Calcium 8.4 L (8.7-10.3) mg/dL
[2024-01-09 14:01] LABS: Basophils # (A) 0.01 X 10*3/uL (0.00-0.10); Basophils % (A) 0.1 %; Eosinophils # (A) 0 X 10*3/uL (0.04-0.35); Eosinophils % (A) 0 %; Lymphocytes # (A) 1.32 X 10*3/uL (0.90-5.00); Lymphocytes % (A) 11.6 %; Monocytes # (A) 1.59 X 10*3/uL (0.20-1.00); Neutrophils # (A) 8.41 X 10*3/uL (1.80-7.70)
--- NOTE | 2024-01-09 14:43 | P.CONS ---
History of Present Illness - Reason for Consult Consult date: 01/09/24 rehab recommendations - Chief Complaint fall s/p femur fracture - History of Present Illness Ms Tamiko Khalil is an 83 y/o right handed female who lives alone in a single story home with 2 DIANA from [facility]. She was independent with mobility and ADLs without an assistive device. She drives. She has 2 support children and grandchildren that live local for assistance. Ms Khalil presented to the hospital on after a slip and fall on the ice and snow. She landed on her left side. She was brought in for evaluations. Imaging revealed displaced subcapital left hip fracture. Orthopedic team was consulted, initially planned for Percutaneous pinning but intraoperative imaging changed plan to a left hip hemiarthroplasty which was completed on 01/08/24. She was made WBAT. 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 PM&R consulted for rehab recommendations. Patient was seen by therapies, needing mod assist with bathing, Supervision with UB dressing, total assist with LB dressing, max assist with bed mobility, mod assist x 2 ppl for 3 ft using RW. 01/09/24: Patient sitting up in chair, visiting with family. She states she is doing 'ok' after surgery, not having too much pain. She denies HAs, dizziness, CP, SOB, and abdominal pain. LBM was before admission. She has a bunch catheter at this time. Discussed with patient and family, recommending IPR and family would like that. Review of Systems reviewed, negative unless stated above in subjective Past Medical History Past Medical History: No Reported History History of Any Multi-Drug Resistant Organisms: None Reported 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 Past Anesthesia/Blood Transfusion Reactions: No Reported Reaction Past Psychological History: No Psychological Hx Reported Smoking Status: Never smoker Past Alcohol Use History: None Reported Past Drug Use History: None Reported - Past Family History Father Family Medical History: No Reported History Mother Family Medical History: No Reported History Medications and Allergies Home Medications Medication Instructions Recorded Confirmed Type Apixaban [Eliquis] 2.5 mg PO BID 30 Days #60 tab 01/09/24 Rx HYDROcodone/APAP 7.5-325MG [Clayton 1 tab PO Q4-6H PRN #30 tab 01/09/24 Rx 7.5-325] Sennosides [Senokot] 2 tab PO DAILY PRN #60 tablet 01/09/24 Rx Allergies Allergy/AdvReac Type Severity Reaction Status Date / Time No Known Allergies Allergy Verified 01/06/24 16:38 Physical Exam Vitals: Vital Signs Temp Pulse Resp BP Pulse Ox 01/09/24 13:06 98.0 F 87 18 128/71 96 01/09/24 06:49 98.5 F 94 18 165/91 92 L 01/09/24 01:19 98.7 F 94 18 155/81 91 L 01/08/24 18:39 77 16 156/82 100 01/08/24 18:17 89 16 159/82 100 01/08/24 18:02 83 16 189/105 100 01/08/24 17:47 70 16 191/98 100 01/08/24 17:32 71 16 190/98 100 01/08/24 17:17 72 16 186/98 100 01/08/24 17:02 69 16 183/89 100 01/08/24 16:47 73 16 179/89 96 01/08/24 16:32 97 F L 67 12 150/85 93 L Intake and Output 01/08/24 01/09/24 01/09/24 22:59 06:59 14:59 Intake Total 405 Output Total 510 350 Balance -105 -350 Intake: IV 405 Output: Urine 360 350 Estimated Blood Loss 150 Other: Voiding Method Indwelling Catheter Indwelling Catheter Weight 62.596 kg EXAM; General: WDWN, elderly female sitting up in chair, family at her side, NAD Head: Normocephalic, atraumatic. Eyes: Symmetric, glasses on Ears: Symmetric. Hearing within normal limits. Mouth: Clear. Neck: Supple. Cardiac: gambling monitor on. Calves supple, non tender, left leg edema Lungs: Breathing comfortably on RA. Chest symmetric. Abdomen: Soft, nontender. Extremities: Arthritic changes consistent with age. Neurological: Alert and oriented x 3 Speech is clear and fluent without paraphasic errors Cranial nerves: CN II-XII grossly intact. Sensation: Intact and symmetrical limbs. Musculoskeletal: ROM WFL EXCEPT: decreased left hip flexion and knee extension pain and weakness limiting MMT UE Sh Abd EE EF FABD WE HG Right 5 5 5 5 Left 5 5 5 5 MMT LE HF KE DF EHL Right 4 4 5 5 Left 3- 3 5 5 Skin: Skin intact where visible to head, neck, and bilateral upper and lower extremities EXCEPT: left hip incision Psych: Calm, cooperative Results CBC & Chem 7: 01/09/24 06:03 01/09/24 06:03 Labs: Abnormal Lab Results - Last 24 Hours (Table) 01/09/24 01/09/24 Range/Units 06:03 06:03 WBC 11.36 H (4.50-10.00) X 10*3/uL RBC 3.52 L (4.10-5.20) X 10*6/uL Hgb 11.3 L (12.0-15.0) g/dL Hct 33.6 L (37.2-46.3) % MCH 32.1 H (27.0-32.0) pg Plt Count 103 L (140-440) X 10*3/uL Neutrophils # 8.41 H (1.80-7.70) X 10*3/uL Monocytes # 1.59 H (0.20-1.00) X 10*3/uL Eosinophils # 0 L (0.04-0.35) X 10*3/uL Est GFR (CKD-EPI) 56 L (>=60) BUN/Creatinine Ratio 23.00 H (12.00-20.00) Ratio Calcium 8.4 L (8.7-10.3) mg/dL Assessment and Plan Assessment: # Fall resulting in displaced subcapital left hip fracture s/p left hip hemia rthroplasty -PT/OT -WBAT -fall and hip precautions # Impaired gait and ADLs secondary to above # 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 She is motivated to get better and has a supportive family. Recommending IPR, patient a nd family agreeable. Will need to submit for insurance authorization. Case Management team aware. Patient seen and examined by Loretta Morrison PA-C in collaboration with Dr Maldonado. Thank you for consulting our services.
[2024-01-09] MEDS: APIXABAN 2.5 MG TABLET PO SCH (19:57)
[2024-01-09] MEDS: HYDROcodone/APAP 7.5-325MG 1 EACH TAB PO PRN (20:02)
[2024-01-09] MEDS ORDERED: TEMAZEPAM 15 MG CAP PO PRN (22:00)
--- NOTE | 2024-01-10 08:27 | P.PN ---
Subjective Progress Note Date: 01/10/24 Principal diagnosis: Left femoral neck fracture. Postop hemiarthroplasty left hip. Patient is an 83-year-old female who was admitted through the emergency department after a fall, 01/06/24. Patient was walking on snow and ice and fell on her side on cement. She Believes she slipped on ice. She states that she did not lose consciousness. States she may have bumped her head mildly but denies any head pain or headache. Is not on blood thinners. She has left hip pain as expected . Denies any other acute injuries. Was having difficulty ambulating. Has no other complaints. Patient was taken to surgery on 01/06/2025 with attempt to perform a pinning of the hip. The fracture was found to be more displaced and surgery was canceled. She is scheduled for hemiarthroplasty of left hip today. 01/10/2024: The patient is postop day #2 status post hemiarthroplasty of the left hip. She is having some pain in the left hip and low back today. She otherwise has no new complaints or concerns. Vital signs are stable. Objective - Vital Signs Vital signs: Vital Signs Temp 98.9 F 01/10/24 07:48 Pulse 98 01/10/24 07:48 Resp 16 01/10/24 07:48 BP 148/88 01/10/24 07:48 Pulse Ox 90 L 01/10/24 07:48 FiO2 Intake & Output 01/09/24 01/10/24 01/10/24 18:59 06:59 18:59 Output Total 450 450 Balance -450 -450 Output: Urine 450 450 Other: Voiding Method Indwelling Catheter Indwelling Catheter - Exam This is an 83-year-old female in no acute distress. She is alert and oriented x 3. Family is present at bedside. She has no new complaints or concerns today. She has pain with motion of the left hip. Dressing is clean, dry and intact. She has full foot and ankle motion without difficulty or pain. Neurovascular status to the lower extremity is intact. - Labs CBC & Chem 7: 01/09/24 06:03 01/09/24 06:03 Labs: Abnormal Lab Results - Last 24 Hours (Table) 01/09/24 01/09/24 Range/Units 06:03 06:03 WBC 11.36 H (4.50-10.00) X 10*3/uL RBC 3.52 L (4.10-5.20) X 10*6/uL Hgb 11.3 L (12.0-15.0) g/dL Hct 33.6 L (37.2-46.3) % MCH 32.1 H (27.0-32.0) pg Plt Count 103 L (140-440) X 10*3/uL Neutrophils # 8.41 H (1.80-7.70) X 10*3/uL Monocytes # 1.59 H (0.20-1.00) X 10*3/uL Eosinophils # 0 L (0.04-0.35) X 10*3/uL Est GFR (CKD-EPI) 56 L (>=60) BUN/Creatinine Ratio 23.00 H (12.00-20.00) Ratio Calcium 8.4 L (8.7-10.3) mg/dL Assessment and Plan (1) Fall Current Visit: Yes Status: Acute Code(s): W19.XXXA - UNSPECIFIED FALL, INITIAL ENCOUNTER SNOMED Code(s): 8482145 (2) Fracture of femoral neck, left Current Visit: Yes Status: Acute Priority: Medium Code(s): S72.002A - FRACTURE OF UNSP PART OF NECK OF LEFT FEMUR, INIT SNOMED Code(s): 0570884 Plan: The clinical findings are discussed with the patient. The patient may be disc harged to inpatient rehab when cleared medically.
--- NOTE | 2024-01-10 11:10 | P.PN ---
Subjective Progress Note Date: 01/10/24 83-year-old woman with prior history of a provoked DVT presented after mechanical fall resulted in hip fracture. Medicine was consulted for medical management as well as preoperative clearance. In the emergency room, patient was afebrile, 180/94, heart rate 72, 95% on room air. CBC demonstrates mild th rombocytopenia to 139, otherwise unremarkable. Basic metabolic panel shows mild elevation of BUN to 18, otherwise unremarkable. Hip/pelvis x-ray demonstrates minimally displaced subcapital fracture of the left hip. She underwent L hip arthroplasty on 01/07. 01/08 Patient was seen and examined. Well controlled pain in her left hip. No bowel movement yet. Not sure about IPR vs SNF vs home. CBC WBC 11.36 Hg 11.3 Hct 33.6 Plt 103. BMP GFR 56, BUN/Cr 23, Ca 8.4. 01/09 Patient was seen and examined. Reports well controlled pain. No bowel movement yet. Decision for IPR. Insurance authorization pending. No new labs today. General: non toxic, no distress, appears at stated age Derm: warm, dry Head: atraumatic, normocephalic, symmetric Eyes: EOMI, no lid lag, anicteric sclera Mouth: no lip lesion, mucus membranes moist Cardiovascular: Good distal perfusion in all 4 extremities Lungs: Breathing comfortably , no accessory muscle use Ext: no gross muscle atrophy, no edema, no contractures : Yadav catheter present Neuro: no focal neuro deficits Psych: Alert, oriented, appropriate affect Based on my assessment of this patient, this patient meets a moderate complexity level of care. Patient has an acute diagnosis of left hip fracture status post L hip arthroplasty that poses a threat to life or bodily function. Leukocytosis: Reactive. No signs of active infection. Continue to monitor. Acute blood loss anemia: Expected result of surgery. Trend. Transfuse if Hg < 7. Thrombocytopenia: Unknown etiology. Follow PCP for further workup. Prerenal azotemia: NS at 75 cc/hr. Chronic conditions: History of DVT CODE STATUS: FULL CODE. DVT Prophylaxis: Eliquis GI Prophylaxis: Designated medical POA if patient is not able to make medical decisions for themselves: I have reviewed the following foreign legal consultant notes: Orthopedic Sx. PMR. I have reviewed the results of the following tests: I have ordered the following tests: I have discussed the care of this patient with the following independent historian: Case management. Son at bedside. I have independently interpreted the following test below: I have discussed the management of this patient with the following physician: Objective - Vital Signs Vital signs: Vital Signs Temp 98.9 F 01/10/24 07:48 Pulse 98 01/10/24 07:48 Resp 16 01/10/24 07:48 BP 148/88 01/10/24 07:48 Pulse Ox 90 L 01/10/24 07:48 FiO2 Intake & Output 01/09/24 01/10/24 01/10/24 18:59 06:59 18:59 Output Total 450 450 Balance -450 -450 Output: Urine 450 450 Other: Voiding Method Indwelling Catheter Indwelling Catheter - Labs CBC & Chem 7: 01/09/24 06:03 01/09/24 06:03 Labs: Abnormal Lab Results - Last 24 Hours (Table) 01/09/24 01/09/24 Range/Units 06:03 06:03 WBC 11.36 H (4.50-10.00) X 10*3/uL RBC 3.52 L (4.10-5.20) X 10*6/uL Hgb 11.3 L (12.0-15.0) g/dL Hct 33.6 L (37.2-46.3) % MCH 32.1 H (27.0-32.0) pg Plt Count 103 L (140-440) X 10*3/uL Neutrophils # 8.41 H (1.80-7.70) X 10*3/uL Monocytes # 1.59 H (0.20-1.00) X 10*3/uL Eosinophils # 0 L (0.04-0.35) X 10*3/uL Est GFR (CKD-EPI) 56 L (>=60) BUN/Creatinine Ratio 23.00 H (12.00-20.00) Ratio Calcium 8.4 L (8.7-10.3) mg/dL
[2024-01-11 08:59] LABS: HCT 34.6 % (34.0-46.0); HGB 11.2 gm/dL (11.4-16.0); MCH 32.2 pg (25.0-35.0); MCHC 32.5 g/dL (31.0-37.0); MCV 99.2 fL (80.0-100.0); Mean Platelet Volume 9.2; Platelet Count 110 k/uL (150-450); RBC 3.49 m/uL (3.80-5.40); WBC 10.2 k/uL (3.8-10.6)
[2024-01-11 09:12] LABS: Potassium 3.8 mmol/L (3.5-5.1)
[2024-01-11 09:13] LABS: ALT 79 U/L (4-34); AST 103 U/L (14-36); African American GFR (CKD) 71 (>60 ml/min/1.73 sqM); Albumin 2.4 g/dL (3.5-5.0); Albumin/Globulin Ratio 0.9; Alkaline Phosphatase 93 U/L (38-126); Anion Gap 6 mmol/L; Blood Urea Nitrogen 23 mg/dL (7-17); Calcium 7.8 mg/dL (8.4-10.2); Carbon Dioxide 22 mmol/L (22-30); Chloride 103 mmol/L (98-107); Globulin 2.6 g/dL; Glucose 106 mg/dL (74-99); Magnesium 2.1 mg/dL (1.6-2.3); Non-African American GFR(CKD) 62 (>60 ml/min/1.73 sqM); Sodium 131 mmol/L (137-145); Total Bilirubin 0.9 mg/dL (0.2-1.3)
--- NOTE | 2024-01-11 09:14 | XR ---
EXAMINATION TYPE: XR chest 1V portable DATE OF EXAM: 01/11/2024 COMPARISON: 12/28/2022 HISTORY: Postop TECHNIQUE: Single frontal view of the chest is obtained. FINDINGS: There is no focal air space opacity, pleural effusion, or pneumothorax seen. The cardiac silhouette size is within normal limits. The osseous structures are intact. Atherosclerotic changes of aorta. Diffuse osteopenia and arthropathy of the shoulders. Underlying COPD. IMPRESSION: No acute process.
--- NOTE | 2024-01-11 09:42 | P.PN ---
Subjective Progress Note Date: 01/11/24 Principal diagnosis: Left femoral neck fracture. Postop hemiarthroplasty left hip. Patient is an 83-year-old female who was admitted through the emergency department after a fall, 01/06/24. Patient was walking on snow and ice and fell on her side on cement. She Believes she slipped on ice. She states that she did not lose consciousness. States she may have bumped her head mildly but denies any head pain or headache. Is not on blood thinners. She has left hip pain as expected . Denies any other acute injuries. Was having difficulty ambulating. Has no other complaints. Patient was taken to surgery on 01/06/2025 with attempt to perform a pinning of the hip. The fracture was found to be more displaced and surgery was canceled. She is scheduled for hemiarthroplasty of left hip today. 01/10/2024: The patient is postop day #2 status post hemiarthroplasty of the left hip. She is having some pain in the left hip and low back today. She otherwise has no new complaints or concerns. Vital signs are stable. 01/11/2024: The patient is postop day #3 status post hemiarthroplasty left hip. She did have a fever of 101 last evening. Swabs for influenza and COVID are pending. She states that she feels okay right now. She does not feel ill. Labs are stable. Vital signs are otherwise stable. She is currently afebrile. Objective - Vital Signs Vital signs: Vital Signs Temp 97.9 F 01/11/24 07:20 Pulse 89 01/11/24 07:20 Resp 14 01/11/24 07:20 BP 142/79 01/11/24 07:20 Pulse Ox 92 L 01/11/24 03:12 FiO2 Intake & Output 01/10/24 01/11/24 01/11/24 18:59 06:59 18:59 Output Total 700 850 Balance -700 -850 Output: Urine 700 850 Other: Voiding Method Indwelling Catheter Indwelling Catheter - Exam This is an 83-year-old female in no acute distress. She is alert and oriented x 3. She is sitting up in the chair. She has no new complaints or concerns today. She has pain with motion of the left hip. Dressing is clean, dry and intact. She has full foot and ankle motion without difficulty or pain. Neurovascular status to the lower extremity is intact. - Labs CBC & Chem 7: 01/11/24 08:31 01/11/24 08:31 Labs: Abnormal Lab Results - Last 24 Hours (Table) 01/11/24 01/11/24 Range/Units 08:31 08:31 RBC 3.49 L (3.80-5.40) m/uL Hgb 11.2 L (11.4-16.0) gm/dL Plt Count 110 L (150-450) k/uL Sodium 131 L (137-145) mmol/L BUN 23 H (7-17) mg/dL Glucose 106 H (74-99) mg/dL Calcium 7.8 L (8.4-10.2) mg/dL AST 103 H (14-36) U/L ALT 79 H (4-34) U/L Total Protein 5.0 L (6.3-8.2) g/dL Albumin 2.4 L (3.5-5.0) g/dL Assessment and Plan (1) Fall Current Visit: Yes Status: Acute Code(s): W19.XXXA - UNSPECIFIED FALL, INITIAL ENCOUNTER SNOMED Code(s): 1361415 (2) Fracture of femoral neck, left Current Visit: Yes Status: Acute Priority: Medium Code(s): S72.002A - FRACTURE OF UNSP PART OF NECK OF LEFT FEMUR, INIT SNOMED Code(s): 1401568 Plan: The clinical findings are discussed with the patient. The patient may be discharged to inpatient rehab when cleared medically.
--- NOTE | 2024-01-11 14:12 | P.PN ---
Subjective Progress Note Date: 01/11/24 Hospital course: Patient is a pleasant 83-year-old female with no reported past medical history except previous DVT who presented in the emergency department after a mechanical fall which resulted in a left hip fracture. Patient was admitted under orthopedic surgery team and we were consulted for medical clearance and medical management throughout hospitalization. Patient underwent left total hip arthroplasty on 01/08/2024. She is currently awaiting placement in inpatient rehab but subsequently developed an elevated fever of 101.1 F. Orders placed for chest x-ray, influenza A, influenza B, RSV, and COVID PCR and urinalysis to be obtained. Physical exam: Patient seen and fully evaluated at bedside this morning. She developed an elevated temp overnight as high as 101.1 F. Patient denies having any symptoms at this time. She reports only mild postoperative pain to left hip and denies having any headache, lightheadedness, dizziness, cough or congestion, sore throat, chest pain, palpitations, shortness of breath, or any other complaints at this time. Vital signs reviewed and stable. General: Nontoxic, no distress and appears stated age. Derm: Skin warm and dry, normal coloration for ethnicity. Head: Atraumatic, normocephalic and symmetric. Eyes: EOMs intact, no lid lag, and anicteric sclera Mouth: no lip lesions, mucus membranes moist Cardiovascular: regular rate and rhythm with normal S1S2, no murmur, positive posterior tibial pulses bilaterally, and cap refill < 2 seconds. Lungs: Respirations even, regular, and unlabored on room air. Lungs CTA bilaterally, no rhonchi, no rales, no wheezing, and no accessory muscle usage. Abdominal: soft, nontender to palpation, no guarding, no appreciable organomegaly Ext: ROM intact. No gross muscle atrophy, no edema, no contractures Neuro: Speech clear, face symmetrical and CN II-XII grossly intact with no noted focal neuro deficits Psych: Alert and oriented to person, place, time, and situation. Appropriate and pleasant affect. Assessment and Plan of Care: Fever and tachycardia -Patient with elevated temp of 101.1 F, heart rate documented as high as 129 and leukocytosis. -Possibly secondary to postoperative atelectasis, educated patient on use of incentive spirometer 10-15 times hourly while awake. Will place orders to rule out other infectious process. -Orders placed for chest x-ray, urinalysis, and repeat CBC. -Orders also placed for COVID and influenza PCR's. Transaminitis. Patient currently denies abdominal pain/tenderness, however with elevated liver enzymes and elevated temp will obtain a gallbladder ultrasound to rule out infectious process. Acute postoperative blood loss anemia, stable and expected finding. No need for transfusion or further intervention at this time. Continue to monitor and transfuse if needed for hemoglobin less than 7. Leukocytosis, reactive secondary to surgical procedure. No signs of infection. No need for further intervention at this time. Prerenal azotemia, resolved with gentle IV fluid hydration. Status post left total hip arthroplasty. Management by primary admitting orthopedic surgery team including DVT prophylaxis, pain management, wound/dressing management, weightbearing, and PT/OT. DVT prophylaxis with Eliquis 2.5 mg twice daily. Vital signs reviewed. Currently blood pressure 142/79, heart rate 89, respiratory rate 18, temp 97.9 F, and SpO2 of 92% on room air. Overnight patient running elevated temps as high as 101.1 F and heart rate elevated as high as 129. Morning labs reviewed. CBC showing stable postoperative acute blood loss anemia with hemoglobin of 11.2 and stable thrombocytopenia with platelet count of 110, WBC count was normal at 10.2.. BMP revealing mild hyponatremia with sodium of 131 and prerenal azotemia with BUN of 23. Liver enzymes slightly elevated with AST of 103, ALT of 79, and alkaline phosphatase of 93. Thank you for allowing us to participate in the care of this pleasant patient. Do not hesitate to contact us with questions. Someone can be reached from the [facility] hospitalist group all hours of the day at [phone] or via [employer]. Patient was seen independently by Nurse Pracitioner. This document was prepared using [employer] dictation software. Please allow for errors in stretch box tender, while rare they do occur. Dakotah Mccord NP rendered care for this patient independently, reviewed the findings and plan as documented in the note above. I did not physically speak with or examine the patient on this date. Objective - Vital Signs Vital signs: Vital Signs Temp 97.9 F 01/11/24 07:20 Pulse 89 01/11/24 07:20 Resp 14 01/11/24 07:20 BP 142/79 01/11/24 07:20 Pulse Ox 92 L 01/11/24 03:12 FiO2 Intake & Output 01/10/24 01/11/24 01/11/24 18:59 06:59 18:59 Output Total 700 850 Balance -700 -850 Output: Urine 700 850 Other: Voiding Method Indwelling Catheter Indwelling Catheter - Labs CBC & Chem 7: 01/11/24 08:31 01/11/24 08:31
[2024-01-12 07:46] LABS: Appearance,Urine Clear (Clear); Bacteria,Urine Rare /hpf; Bilirubin,Urine Negative (Negative); Blood,Urine Negative (Negative); Color,Urine Yellow; Glucose,Urine (UA) Negative (Negative); Ketones,Urine Negative (Negative); Leukocyte Esterase,Urine Large (Negative); Mucus,Urine Rare /hpf; Nitrite,Urine Negative (Negative); Protein,Urine 1+ (Negative); RBC,Urine 2 /hpf (0-5); Specific Gravity,Urine 1.015 (1.001-1.035); Squamous Epithelial Cell,Urine <1 /hpf (0-4); Urobilinogen,Urine <2.0 mg/dL (<2.0); WBC,Urine 101 /hpf (0-5)
[2024-01-12 08:07] LABS: HCT 32.7 % (34.0-46.0); HGB 10.9 gm/dL (11.4-16.0); MCH 32.7 pg (25.0-35.0); MCHC 33.5 g/dL (31.0-37.0); MCV 97.5 fL (80.0-100.0); Mean Platelet Volume 9.3; Platelet Count 134 k/uL (150-450); RBC 3.35 m/uL (3.80-5.40); RDW 13.4 % (11.5-15.5)
--- NOTE | 2024-01-12 08:25 | US ---
EXAMINATION TYPE: US gallbladder DATE OF EXAM: 01/11/2024 COMPARISON: 05/08/2017 CLINICAL INDICATION: Female, 83 years old with history of elevated liver enzymes and fever; Elevated liver enzymes and fever. TECHNIQUE: Multiple sonographic images of the right upper quadrant are obtained. FINDINGS: EXAM MEASUREMENTS: Liver Length: 16.5 cm Gallbladder Wall: 0.23 cm CBD: 0.42 cm Right Kidney: 12.8 x 5.2 x 5.8 cm FICTION WRITER NOTES: Limited due to gas Pancreas: Tail was not well seen. Liver: Limited due to gas. Appears coarse in echotexture. Gallbladder: Appears anechoic. Evidence for sonographic Jacobson's sign: No CBD: Appears wnl Right Kidney: Renal pelvis appears dilated. Measures slightly enlarged at 12.8 cm L. IMPRESSION: Borderline mild right hydronephrosis. No evidence of choledocholithiasis. No focal liver lesion identified.
[2024-01-12 08:26] LABS: ALT 227 U/L (4-34); AST 307 U/L (14-36); African American GFR (CKD) 66 (>60 ml/min/1.73 sqM); Albumin 2.5 g/dL (3.5-5.0); Albumin/Globulin Ratio 0.9; Alkaline Phosphatase 135 U/L (38-126); Anion Gap 4 mmol/L; Blood Urea Nitrogen 22 mg/dL (7-17); Calcium 8.1 mg/dL (8.4-10.2); Carbon Dioxide 25 mmol/L (22-30); Chloride 103 mmol/L (98-107); Globulin 2.7 g/dL; Glucose 108 mg/dL (74-99); Magnesium 2.3 mg/dL (1.6-2.3); Non-African American GFR(CKD) 58 (>60 ml/min/1.73 sqM); Potassium 3.7 mmol/L (3.5-5.1); Sodium 132 mmol/L (137-145); Total Bilirubin 0.9 mg/dL (0.2-1.3); Total Protein 5.2 g/dL (6.3-8.2)
--- NOTE | 2024-01-12 13:26 | P.DS ---
Providers Date of admission: 01/06/24 13:38 Expected date of discharge: 01/12/24 Attending physician: Pauline De León DO Consults: 01/06/24 13:38 Consult Physician Routine Consulting Provider: Lorenzo Sethi Consult Reason/Comments: medical management Do you want consulting provider notified?: Already Contacted 01/09/24 10:14 Consult Physician Routine Consulting Provider: Murtaza Naylor Consult Reason/Comments: evaluate for inpatient rehab Do you want consulting provider notified?: Yes Primary care physician: Stated None - Discharge Diagnosis(es) (1) S/P hip hemiarthroplasty Current Visit: Yes Status: Acute (2) Fall Current Visit: Yes Status: Acute (3) Fracture of femoral neck, left Current Visit: Yes Status: Acute Priority: Medium Hospital Course: This is an 83-year-old female who sustained a fracture of her left hip after a fall on 01/06/2024. The patient presented for evaluation in the emergency room. After discussion and consideration patient consents to proceed with surgical treatment. The patient is seen preoperatively by Dr. De León and medically cleared for surgery by internal medicine.The patient initially consented to percutaneous pinning of the left hip, but x-rays taken in the OR just prior to surgery revealed fracture displacement. Patient was then rescheduled for a left hip hemiarthroplasty. Patient was admitted to [facility] on 01/06/2024 and left hip hemiarthroplasty was performed on 01/08/2024. The procedure is performed without complication or sequelae. The patient is doing well postoperatively. Labs and vital signs are stable on day of discharge. On day of discharge patient's hip incision is healing well. There is minimal erythema. There is no drainage noted at this time. There is minimal soft tissue swelling to the hip and thigh. Patient has full foot and ankle motion without difficulty or pain. Calf is soft and nontender to palpation. Neurovascular status to the left lower extremity is intact. Patient is discharged to rehab in good condition. Please see med rec for accurate list of home medications. Patient Condition at Discharge: Stable Plan - Discharge Summary Discharge Rx Participant: Yes New Discharge Prescriptions: New Apixaban [Eliquis] 2.5 mg PO BID 30 Days #60 tab HYDROcodone/APAP 7.5-325MG [[place] 7.5-325] 1 tab PO Q4-6H PRN #30 tab PRN Reason: Pain Sennosides [Senokot] 2 tab PO DAILY PRN #60 tablet PRN Reason: Constipation Discharge Medication List Apixaban [Eliquis] 2.5 mg PO BID 30 Days #60 tab 01/09/24 [Rx] HYDROcodone/APAP 7.5-325MG [[place] 7.5-325] 1 tab PO Q4-6H PRN #30 tab 01/09/24 [Rx] Sennosides [Senokot] 2 tab PO DAILY PRN #60 tablet 01/09/24 [Rx] Follow up Appointment(s)/Referral(s): Pauline De León DO [Doctor of Osteopathic Medicine] - 10 Days None,Stated [Primary Care Provider] - 1-2 days Activity/Diet/Wound Care/Special Instructions: Weightbearing as tolerated with walker. Leave dressing intact. Dressing may be removed by home care nurse or by patient in 7 days. Then change dressing twice daily until follow up. May shower with initial dressing intact and after removal. If dressing become saturated, please remove. Please take Eliquis twice daily for 30 days to help prevent blood clots. Recommend use of compression stockings daily until follow up to help prevent swelling and blood clots. May remove at night before sleeping. Please follow-up with [facility] in 2 weeks and call with any questions or concerns, . Discharge/Stand Alone Forms: Area PCPs Discharge Disposition: TRANSFER TO SNF/ECF
--- NOTE | 2024-01-12 14:44 | P.PN ---
Subjective Progress Note Date: 01/12/24 Hospital course: Patient is a pleasant 83-year-old female with no reported past medical history except previous DVT who presented in the emergency department after a mechanical fall which resulted in a left hip fracture. Patient was admitted under orthopedic surgery team and we were consulted for medical clearance and medical management throughout hospitalization. Patient underwent left total hip arthroplasty on 01/08/2024. She is currently awaiting placement in inpatient rehab but subsequently developed an elevated fever of 101.1 F along with acute transaminitis. Urinalysis was positive for UTI and patient started on IV antibiotics with Rocephin. Gallbladder ultrasound was completed and was a limited study secondary to overlying gas but reported no evidence for choledocholithiasis and revealing mild hydronephrosis. Patient continued to run mildly elevated temp of 100.6 F. Liver profile showing further elevation of liver enzymes. Patient asymptomatic denies any complaints other than mild postoperative left hip pain. Will continue to monitor if no improvement or further worsening of liver enzymes will need to repeat liver ultrasound. Physical exam: Patient seen and fully evaluated at bedside this morning. She developed an elevated temp overnight as high as 101.1 F. Patient denies having any symptoms at this time. She reports only mild postoperative pain to left hip and denies having any headache, lightheadedness, dizziness, cough or congestion, sore throat, chest pain, palpitations, shortness of breath, or any other complaints at this time. Vital signs reviewed and stable. General: Nontoxic, no distress and appears stated age. Derm: Skin warm and dry, normal coloration for ethnicity. Head: Atraumatic, normocephalic and symmetric. Eyes: EOMs intact, no lid lag, and anicteric sclera Mouth: no lip lesions, mucus membranes moist Cardiovascular: regular rate and rhythm with normal S1S2, no murmur, positive posterior tibial pulses bilaterally, and cap refill < 2 seconds. Lungs: Respirations even, regular, and unlabored on room air. Lungs CTA bilaterally, no rhonchi, no rales, no wheezing, and no accessory muscle usage. Abdominal: soft, nontender to palpation, no guarding, no appreciable organomegaly Ext: ROM intact. No gross muscle atrophy, no edema, no contractures Neuro: Speech clear, face symmetrical and CN II-XII grossly intact with no noted focal neuro deficits Psych: Alert and oriented to person, place, time, and situation. Appropriate and pleasant affect. Assessment and Plan of Care: Postoperative fever and tachycardia Acute transaminitis UTI -Patient with elevated temp as high as 101.1 F and heart rate documented as high as 129 with leukocytosis. -Urinalysis positive for infection. Patient started on IV antibiotics with Rocephin 2 g daily. Follow-up on urine culture results. -Liver enzymes newly elevated and increasing up to AST of 307, ALT of 227, and a lkaline phosphatase of 135. -Gallbladder ultrasound was limited due to gas, revealing borderline hyd ronephrosis with no evidence of choledocholithiasis -Chest x-ray was negative for acute cardiopulmonary process. COVID PCR, influenza A, influenza B, and RSV were negative. -Will repeat CMP tomorrow morning and monitor for improvement in liver enzymes, if continued further elevation will need to repeat liver ultrasound at that time secondary to limited study. Patient remains asymptomatic of abdominal pain or complaints. Acute postoperative blood loss anemia, hemoglobin 10.9 stable and expected finding. No need for transfusion or further intervention at this time. Continue to monitor and transfuse if needed for hemoglobin less than 7. Leukocytosis, reactive secondary to surgical procedure. No signs of infection. Resolved. Prerenal azotemia, improving with gentle IV fluid hydration. Status post left total hip arthroplasty. Management by primary admitting orthopedic surgery team including DVT prophylaxis, pain management, wound/dressing management, weightbearing, and PT/OT. DVT prophylaxis currently with Eliquis 2.5 mg twice daily. Data and imaging reviewed: Vital signs reviewed. Currently blood pressure 115/73, heart rate before, respiratory rate 16, temp 97.6 F, and SpO2 of 97% on room air. Temperature high over the past 24 hours was 100.6 F. Morning labs reviewed. CBC showing stable normocytic anemia with hemoglobin of 10.9 and thrombocytopenia with platelet count of 134. BMP showing mild hyponatremia with sodium of 132 and mild prerenal azotemia with BUN of 22 otherwise normal findings. Blood glucose 108. Liver profile showing further elevation with AST of 307, ALT of 227, and alkaline phosphatase of 135. Albumin remains low at 2.5. Urinalysis was positive for infection with 101 WBCs. Thank you for allowing us to participate in the care of this pleasant patient. Do not hesitate to contact us with questions. Someone can be reached from the [facility] hospitalist group all hours of the day at [phone] or via perfect serve. Patient was seen independently by Nurse Pracitioner. This document was prepared using [employer] dictation software. Please allow for errors in package line relief operator, while rare they do occur. Dakotah Mccord STORY EDITOR rendered care for this patient independently, reviewed the findings and plan as documented in the note above. I did not physically speak with or examine the patient on this date. Objective - Vital Signs Vital signs: Vital Signs Temp 98.2 F 01/12/24 04:02 Pulse 84 01/12/24 04:02 Resp 20 01/12/24 01:37 BP 132/72 01/12/24 01:37 Pulse Ox 94 L 01/12/24 01:37 FiO2 Intake & Output 01/11/24 01/12/24 01/12/24 18:59 06:59 18:59 Intake Total 480 Output Total 1360 Balance -1360 480 Intake: Oral 480 Output: Urine 1360 Female - External 680 Other: Voiding Method Indwelling Catheter # Voids 2 # Bowel Movements 2 - Labs CBC & Chem 7: 01/13/24 07:32 01/13/24 07:32 Labs: Abnormal Lab Results - Last 24 Hours (Table) 01/11/24 01/11/24 Range/Units 08:31 08:31 RBC 3.49 L (3.80-5.40) m/uL Hgb 11.2 L (11.4-16.0) gm/dL Plt Count 110 L (150-450) k/uL Sodium 131 L (137-145) mmol/L BUN 23 H (7-17) mg/dL Glucose 106 H (74-99) mg/dL Calcium 7.8 L (8.4-10.2) mg/dL AST 103 H (14-36) U/L ALT 79 H (4-34) U/L Total Protein 5.0 L (6.3-8.2) g/dL Albumin 2.4 L (3.5-5.0) g/dL
[2024-01-12 15:54] VITALS: BMI 22.2
--- NOTE | 2024-01-13 07:37 | P.PN ---
Subjective Progress Note Date: 01/13/24 This is an 83-year-old female who is status post left hip hemiarthroplasty. Patient is seen and evaluated at bedside today. Patient's discharge was postponed due to elevated liver enzymes. Patient denies any new complaints today. Objective - Vital Signs Vital signs: Vital Signs Temp 98.6 F 01/13/24 01:07 Pulse 90 01/13/24 01:07 Resp 20 01/13/24 01:07 BP 156/75 01/13/24 01:07 Pulse Ox 96 01/13/24 01:07 FiO2 Intake & Output 01/12/24 01/13/24 01/13/24 18:59 06:59 18:59 Intake Total 900 Output Total 1400 Balance -500 Weight 62.596 kg Intake: Oral 900 Output: Urine 1400 Other: # Voids 3 # Bowel Movements 2 - Exam Vital signs are stable. Patient is in no acute distress and is alert and oriented 3. Calf is soft and nontender to palpation. Dressing is clean, dry, and intact. Patient has full foot and ankle motion without pain or difficulty. Sensation intact. Neurovascular status and circulatory status are intact. - Labs CBC & Chem 7: 01/12/24 07:46 01/12/24 07:46 Labs: Abnormal Lab Results - Last 24 Hours (Table) 01/12/24 01/12/24 01/12/24 Range/Units 06:00 07:46 07:46 RBC 3.35 L (3.80-5.40) m/uL Hgb 10.9 L (11.4-16.0) gm/dL Hct 32.7 L (34.0-46.0) % Plt Count 134 L (150-450) k/uL Sodium 132 L (137-145) mmol/L BUN 22 H (7-17) mg/dL Glucose 108 H (74-99) mg/dL Calcium 8.1 L (8.4-10.2) mg/dL AST 307 H (14-36) U/L ALT 227 H (4-34) U/L Alkaline Phosphatase 135 H (38-126) U/L Total Protein 5.2 L (6.3-8.2) g/dL Albumin 2.5 L (3.5-5.0) g/dL Urine Protein 1+ H (Negative) Ur Leukocyte Esterase Large H (Negative) Urine WBC 101 H (0-5) /hpf Urine Bacteria Rare H (None) /hpf Urine Mucus Rare H (None) /hpf Assessment and Plan (1) S/P hip hemiarthroplasty Current Visit: Yes Status: Acute Code(s): Z96.649 - PRESENCE OF UNSPECIFIED ARTIFICIAL HIP JOINT SNOMED Code(s): 712396700 (2) Fall Current Visit: Yes Status: Acute Code(s): W19.XXXA - UNSPECIFIED FALL, INITIAL ENCOUNTER SNOMED Code(s): 3891435 (3) Fracture of femoral neck, left Current Visit: Yes Status: Acute Priority: Medium Code(s): S72.002A - FRACTURE OF UNSP PART OF NECK OF LEFT FEMUR, INIT SNOMED Code(s): 3672053 Plan: Continue routine postop care and pain control. Continue hip dislocation precautions and use of abductor pillow for 6 weeks. Continue anticoagulation with Eliquis. Weightbearing as tolerated with a walker. Leave dressing in place for 7 days. Appreciate input from internal medicine. Anticipate discharge to [facility] when cleared medically.
[2024-01-13 08:30] LABS: HCT 31.5 % (34.0-46.0); HGB 10.6 gm/dL (11.4-16.0); MCH 33.2 pg (25.0-35.0); MCHC 33.6 g/dL (31.0-37.0); MCV 98.8 fL (80.0-100.0); Mean Platelet Volume 8.8; Platelet Count 182 k/uL (150-450); RBC 3.19 m/uL (3.80-5.40); RDW 13.1 % (11.5-15.5); WBC 7.6 k/uL (3.8-10.6)
[2024-01-13 09:18] LABS: ALT 177 U/L (4-34); AST 167 U/L (14-36); African American GFR (CKD) 80 (>60 ml/min/1.73 sqM); Albumin 2.5 g/dL (3.5-5.0); Albumin/Globulin Ratio 0.9; Alkaline Phosphatase 137 U/L (38-126); Anion Gap 5 mmol/L; Blood Urea Nitrogen 16 mg/dL (7-17); Calcium 8.1 mg/dL (8.4-10.2); Carbon Dioxide 23 mmol/L (22-30); Chloride 105 mmol/L (98-107); Globulin 2.7 g/dL; Glucose 118 mg/dL (74-99); Magnesium 2.1 mg/dL (1.6-2.3); Non-African American GFR(CKD) 70 (>60 ml/min/1.73 sqM); Potassium 3.5 mmol/L (3.5-5.1); Sodium 133 mmol/L (137-145); Total Bilirubin 0.7 mg/dL (0.2-1.3); Total Protein 5.2 g/dL (6.3-8.2)
--- NOTE | 2024-01-13 12:07 | P.PN ---
Subjective Progress Note Date: 01/13/24 Subjective: Patient seen and examined at bedside. No acute events overnight. Has any new complaints. Pertinent positives and negatives as discussed above, a complete review of systems was performed and all other systems are negative. Vitals Signs Reviewed. General: Nontoxic, no distress, appears at stated age Derm: Warm, dry Head: Atraumatic, normocephalic, symmetric Eyes: EOMI, no lid lag, anicteric sclera Mouth: No lip lesion, mucus membranes moist Cardiovascular: S1S2 reg, no murmur Lungs: CTA bilateral, no rhonchi, no rales, no accessory muscle use Abdominal: Soft, nontender to palpation, no guarding, no appreciable organomegaly Ext: No gross muscle atrophy, no edema, no contractures Neuro: CN II-XI grossly intact, no focal neuro deficits Psych: Alert, oriented, appropriate affect Data Reviewed Today: Pertinent Labs: WBC 7.6, hemoglobin 10.6, sodium 133, creatinine 0.79, total bili 0.7, AST 167, ALT 177, ALP 137 Imaging: No new imaging Assessment and Plan: Active: Postop fever and tachycardia Urinary tract infection Elevated transaminases Acute blood loss anemia, anticipated outcome of surgery Leukocytosis, resolved Prerenal azotemia, resolved Status post left hip arthroplasty Continue cefdinir for another 3 days Transaminases downtrending, possibly in the setting of recent surgery No right upper quadrant pain, gallbladder ultrasound does not show any evidence of choledocholithiasis Hemoglobin stable Rest of the management per primary team Patient is medically optimized for discharge Thank you for allowing us to participate in the care of this pleasant patient. Do not hesitate to contact us with questions. Someone can be reached from the [facility] hospitalist group all hours of the day at [phone] or via [employer]. Objective - Vital Signs Vital signs: Vital Signs Temp 98.4 F 01/13/24 07:07 Pulse 86 01/13/24 07:07 Resp 18 01/13/24 07:07 BP 166/86 01/13/24 07:07 Pulse Ox 93 L 01/13/24 07:07 FiO2 Intake & Output 01/12/24 01/13/24 01/13/24 18:59 06:59 18:59 Intake Total 900 Output Total 1400 Balance -500 Weight 62.596 kg Intake: Oral 900 Output: Urine 1400 Other: # Voids 3 # Bowel Movements 2 - Labs CBC & Chem 7: 01/13/24 07:32 01/13/24 07:32 Labs: Abnormal Lab Results - Last 24 Hours (Table) 01/13/24 01/13/24 Range/Units 07:32 07:32 RBC 3.19 L (3.80-5.40) m/uL Hgb 10.6 L (11.4-16.0) gm/dL Hct 31.5 L (34.0-46.0) % Sodium 133 L (137-145) mmol/L Glucose 118 H (74-99) mg/dL Calcium 8.1 L (8.4-10.2) mg/dL AST 167 H (14-36) U/L ALT 177 H (4-34) U/L Alkaline Phosphatase 137 H (38-126) U/L Total Protein 5.2 L (6.3-8.2) g/dL Albumin 2.5 L (3.5-5.0) g/dL
[2024-01-14 10:10] LABS: Basophils % (A) 1 %; Eosinophils # (A) 0.1 k/uL (0-0.7); Eosinophils % (A) 1 %; HCT 33.8 % (34.0-46.0); HGB 10.9 gm/dL (11.4-16.0); Lymphocytes # (A) 0.6 k/uL (1.0-4.8); Lymphocytes % (A) 11 %; MCH 31.7 pg (25.0-35.0); MCHC 32.3 g/dL (31.0-37.0); MCV 98.1 fL (80.0-100.0); Mean Platelet Volume 8.3; Monocytes # (A) 0.3 k/uL (0-1.0); Monocytes % (A) 7 %; Neutrophils # (A) 3.9 k/uL (1.3-7.7); Neutrophils % (A) 78 %; Platelet Count 189 k/uL (150-450); RBC 3.45 m/uL (3.80-5.40); RDW 13.3 % (11.5-15.5)
[2024-01-14 10:31] LABS: ALT 145 U/L (4-34); AST 97 U/L (14-36); African American GFR (CKD) 78 (>60 ml/min/1.73 sqM); Albumin 2.7 g/dL (3.5-5.0); Albumin/Globulin Ratio 0.9; Alkaline Phosphatase 148 U/L (38-126); Anion Gap 7 mmol/L; Blood Urea Nitrogen 15 mg/dL (7-17); Calcium 8.1 mg/dL (8.4-10.2); Carbon Dioxide 23 mmol/L (22-30); Chloride 102 mmol/L (98-107); Globulin 2.9 g/dL; Glucose 147 mg/dL (74-99); Non-African American GFR(CKD) 67 (>60 ml/min/1.73 sqM); Potassium 4.2 mmol/L (3.5-5.1); Sodium 132 mmol/L (137-145); Total Bilirubin 0.6 mg/dL (0.2-1.3); Total Protein 5.6 g/dL (6.3-8.2)
--- NOTE | 2024-01-14 12:35 | P.PN ---
Subjective Progress Note Date: 01/14/24 Subjective: Patient seen and examined at bedside. No acute events overnight. Has any new complaints. Was febrile yesterday. Pertinent positives and negatives as discussed above, a complete review of systems was performed and all other systems are negative. Vitals Signs Reviewed. General: Nontoxic, no distress, appears at stated age Derm: Warm, dry, dressing clean, dry, intact Head: Atraumatic, normocephalic, symmetric Eyes: EOMI, no lid lag, anicteric sclera Mouth: No lip lesion, mucus membranes moist Cardiovascular: S1S2 reg, no murmur Lungs: CTA bilateral, no rhonchi, no rales, no accessory muscle use Abdominal: Soft, nontender to palpation, no guarding, no appreciable organom egaly Ext: No gross muscle atrophy, no edema, no contractures Neuro: CN II-XI grossly intact, no focal neuro deficits Psych: Alert, oriented, appropriate affect Data Reviewed Today: Pertinent Labs: WBC 5, hemoglobin 10.9, sodium 132, creatinine 0.81, AST 97, ALT 145, ALP 148, total bili 0.6 Imaging: No new imaging Assessment and Plan: Active: Persistent postop fever Postop fever and tachycardia Urinary tract infection Elevated transaminases Acute blood loss anemia, anticipated outcome of surgery Leukocytosis, resolved Prerenal azotemia, resolved Status post left hip arthroplasty - Continue ceftriaxone while inpatient, cefdinir at the time of discharge - Patient still having occasional fevers, may not be related to an infectious cause, may be inflammatory from recent surgery versus atelectasis - Encouraged to use incentive spirometer - Will repeat urinalysis -Transaminases downtrending, possibly in the setting of recent surgery -No right upper quadrant pain, gallbladder ultrasound does not show any evidence of choledocholithiasis -Hemoglobin stable -Rest of the management per primary team Thank you for allowing us to participate in the care of this pleasant patient. Do not hesitate to contact us with questions. Someone can be reached from the [facility] hospitalist group all hours of the day at [phone] or via perfect serve. Objective - Vital Signs Vital signs: Vital Signs Temp 99.0 F 01/14/24 07:07 Pulse 86 01/14/24 11:59 Resp 18 01/14/24 07:07 BP 171/85 01/14/24 11:59 Pulse Ox 95 01/14/24 07:07 FiO2 Intake & Output 01/13/24 01/14/24 01/14/24 18:59 06:59 18:59 Intake Total 900 Output Total 300 1150 300 Balance -300 -250 -300 Intake: Oral 900 Output: Urine 300 1150 300 Other: # Voids 1 - Labs CBC & Chem 7: 01/14/24 09:44 01/14/24 09:44 Labs: Abnormal Lab Results - Last 24 Hours (Table) 01/14/24 01/14/24 Range/Units 09:44 09:44 RBC 3.45 L (3.80-5.40) m/uL Hgb 10.9 L (11.4-16.0) gm/dL Hct 33.8 L (34.0-46.0) % Lymphocytes # 0.6 L (1.0-4.8) k/uL Sodium 132 L (137-145) mmol/L Glucose 147 H (74-99) mg/dL Calcium 8.1 L (8.4-10.2) mg/dL AST 97 H (14-36) U/L ALT 145 H (4-34) U/L Alkaline Phosphatase 148 H (38-126) U/L Total Protein 5.6 L (6.3-8.2) g/dL Albumin 2.7 L (3.5-5.0) g/dL Microbiology - Last 24 Hours (Table) 01/12/24 19:00 Urine Culture - Final Urine,Voided
[2024-01-15 05:04] LABS: Appearance,Urine Clear (Clear); Bilirubin,Urine Negative (Negative); Blood,Urine Negative (Negative); Color,Urine Colorless; Glucose,Urine (UA) Negative (Negative); Ketones,Urine Negative (Negative); Leukocyte Esterase,Urine Negative (Negative); Nitrite,Urine Negative (Negative); Protein,Urine Negative (Negative); Specific Gravity,Urine 1.008 (1.001-1.035); Urobilinogen,Urine <2.0 mg/dL (<2.0)
[2024-01-15 08:22] VITALS: RESP 19; TEMP 98.3
--- NOTE | 2024-01-15 10:15 | P.DS ---
Providers Date of admission: 01/06/24 13:38 Expected date of discharge: 01/15/24 Attending physician: Pauline De León DO Consults: 01/06/24 13:38 Consult Physician Routine Consulting Provider: Lorenzo Sethi Consult Reason/Comments: medical management Do you want consulting provider notified?: Already Contacted 01/09/24 10:14 Consult Physician Routine Consulting Provider: Murtaza Naylor Consult Reason/Comments: evaluate for inpatient rehab Do you want consulting provider notified?: Yes Primary care physician: Stated None - Discharge Diagnosis(es) (1) S/P hip hemiarthroplasty Current Visit: Yes Status: Acute (2) Fall Current Visit: Yes Status: Acute (3) Fracture of femoral neck, left Current Visit: Yes Status: Acute Priority: Medium Hospital Course: This is an 83-year-old female who sustained a fracture of her left hip after a fall on 01/06/2024. The patient presented for evaluation in the emergency room. After discussion and consideration patient consents to proceed with surgical treatment. The patient is seen preoperatively by Dr. De León and medically cleared for surgery by internal medicine. The patient initially consented to percutaneous pinning of the left hip, but x-rays taken in the OR just prior to surgery revealed fracture displacement. Patient was then rescheduled for a left hip hemiarthroplasty and consent was obtained. Patient was admitted to [facility] on 01/06/2024 and left hip hemiarthroplasty was performed on 01/08/2024. The procedure is performed without complication or sequelae. Patient has been monitored by internal medicine for urinary tract infection and elevated transaminases. A gallbladder ultrasound was negative. Patient's liver enzymes are trending down and patient has been treated for her urinary tract infection. Labs and vital signs are stable on day of discharge. The patient is doing well postoperatively. On day of discharge patient's hip incision is healing well. There is minimal erythema. There is no drainage noted at this time. There is minimal soft tissue swelling to the hip and thigh. Patient has full foot and ankle motion without difficulty or pain. Calf is soft and nontender to palpation. Neurovascular status to the left lower extremity is intact. Patient is discharged to rehab in good condition. Please see med rec for accurate list of home medications. Patient Condition at Discharge: Stable Plan - Discharge Summary Discharge Rx Participant: Yes New Discharge Prescriptions: New Cefdinir 300 mg PO Q12HR #6 cap Apixaban [Eliquis] 2.5 mg PO BID 30 Days #60 tab HYDROcodone/APAP 7.5-325MG [[place] 7.5-325] 1 tab PO Q4-6H PRN #30 tab PRN Reason: Pain Sennosides [Senokot] 2 tab PO DAILY PRN #60 tablet PRN Reason: Constipation Discharge Medication List Apixaban [Eliquis] 2.5 mg PO BID 30 Days #60 tab 01/09/24 [Rx] HYDROcodone/APAP 7.5-325MG [[place] 7.5-325] 1 tab PO Q4-6H PRN #30 tab 01/09/24 [Rx] Sennosides [Senokot] 2 tab PO DAILY PRN #60 tablet 01/09/24 [Rx] Cefdinir 300 mg PO Q12HR #6 cap 01/13/24 [Rx] Follow up Appointment(s)/Referral(s): Pauline De León DO [Doctor of Osteopathic Medicine] - 10 Days None,Stated [Primary Care Provider] - 1-2 days Patient Instructions/Handouts: Urinary Tract Infection in Women (DC) Activity/Diet/Wound Care/Special Instructions: Weightbearing as tolerated with walker. Leave dressing intact. Dressing may be removed by home care nurse or by patient in 7 days. Then change dressing twice daily until follow up. May shower with initial dressing intact and after removal. If dressing become saturated, please remove. Please take Eliquis twice daily for 30 days to help prevent blood clots. Recommend use of compression stockings daily until follow up to help prevent swelling and blood clots. May remove at night before sleeping. Please follow-up with [facility] in 2 weeks and call with any questions or concerns, . Please take antibiotics for another 3 days. Discharge/Stand Alone Forms: Area PCPs Discharge Disposition: TRANSFER TO SNF/ECF
--- NOTE | 2024-01-15 12:17 | P.PN ---
Subjective Progress Note Date: 01/15/24 Subjective: Patient seen and examined at bedside. No acute events overnight. No new complaints. Pertinent positives and negatives as discussed above, a complete review of systems was performed and all other systems are negative. Vitals Signs Reviewed. General: Nontoxic, no distress, appears at stated age Derm: Warm, dry, dressing clean, dry, intact Head: Atraumatic, normocephalic, symmetric Eyes: EOMI, no lid lag, anicteric sclera Mouth: No lip lesion, mucus membranes moist Cardiovascular: S1S2 reg, no murmur Lungs: CTA bilateral, no rhonchi, no rales, no accessory muscle use Abdominal: Soft, nontender to palpation, no guarding, no appreciable organomegaly Ext: No gross muscle atrophy, no edema, no contractures Neuro: CN II-XI grossly intact, no focal neuro deficits Psych: Alert, oriented, appropriate affect Data Reviewed Today: Pertinent Labs: Repeat urinalysis negative for any leukocyte esterase or nitrites. Imaging: No new imaging Assessment and Plan: Active: Persistent postop fever, resolved Urinary tract infection Elevated transaminases Acute blood loss anemia, anticipated outcome of surgery Leukocytosis, resolved Prerenal azotemia, resolved Status post left hip arthroplasty - Continue ceftriaxone while inpatient, cefdinir at the time of discharge - Repeat urinalysis negative - Encouraged to use incentive spirometer -Transaminases downtrending, possibly in the setting of recent surgery -No right upper quadrant pain, gallbladder ultrasound does not show any evidence of choledocholithiasis -Hemoglobin stable -Rest of the management per primary team Patient is medically optimized for discharge Thank you for allowing us to participate in the care of this pleasant patient. Do not hesitate to contact us with questions. Someone can be reached from the [facility] hospitalist group all hours of the day at [phone] or via perfect serve. Objective - Vital Signs Vital signs: Vital Signs Temp 98.3 F 01/15/24 07:17 Pulse 87 01/15/24 07:17 Resp 19 01/15/24 07:17 BP 150/85 01/15/24 07:17 Pulse Ox 96 01/15/24 07:17 FiO2 Intake & Output 01/14/24 01/15/24 01/15/24 18:59 06:59 18:59 Intake Total 900 950 Output Total 600 400 700 Balance 300 550 -700 Intake: Oral 900 950 Output: Urine 600 400 700 Other: # Voids 2 1 - Labs CBC & Chem 7: 01/14/24 09:44 01/14/24 09:44 Labs: Microbiology - Last 24 Hours (Table) 01/12/24 19:00 Urine Culture - Final Urine,Voided
[2024-01-15 15:44] VITALS: BP 144/78; PULSE 80
== END 2024-01-15 16:39 | DRG 522 ==
LOC: EC 12:05 → 4SSUR 13:38
PROVIDERS: ADMIT Orthopaedic Surgery Hand Surgery; ATTEND Orthopaedic Surgery Hand Surgery
PROC: 0QJYXZZ Inspection of Lower Bone, External Approach (ICD-10-PCS; 2024-01-07)
PROC: 0SRS0J9 Replacement of Left Hip Joint, Femoral Surface with Synthetic Substitute, Cemented, Open Approach (ICD-10-PCS; principal; 2024-01-08 10:35)
DX: S72.012A Unspecified intracapsular fracture of left femur, initial encounter for closed fracture (principal); D62 Acute posthemorrhagic anemia; N39.0 Urinary tract infection, site not specified; W00.0XXA Fall on same level due to ice and snow, initial encounter; Z60.2 Problems related to living alone; Z28.21 Immunization not carried out because of patient refusal; Z11.52 Encounter for screening for COVID-19; M19.09 Primary osteoarthritis, other specified site; I16.0 Hypertensive urgency; Z90.5 Acquired absence of kidney; G47.00 Insomnia, unspecified; R26.9 Unspecified abnormalities of gait and mobility; Z86.718 Personal history of other venous thrombosis and embolism; D69.6 Thrombocytopenia, unspecified; R50.82 Postprocedural fever; S09.90XA Unspecified injury of head, initial encounter; Z53.9 Procedure and treatment not carried out, unspecified reason; Z74.09 Other reduced mobility
CPT/HCPCS: 64447; 71045; 73501; 73502; 76705; 80048; 80053; 81001; 81003; 83735; 85025; 85027; 87086; 87636; 94760; 99285

== ENCOUNTER → 2024-01-29 | Outpatient (CLI) | payer MEDICARE ==
[2024-01-29 16:04] LABS: ALT 58 U/L (8-44); AST 55 U/L (13-35); Albumin 3.3 g/dL (3.8-4.9); Albumin/Globulin Ratio 1.14 Ratio (1.60-3.17); Alkaline Phosphatase 126 U/L (41-126); BUN/Creat Ratio 18.33 Ratio (12.00-20.00); Blood Urea Nitrogen 16.5 mg/dL (9.0-27.0); Calcium 9.4 mg/dL (8.7-10.3); Carbon Dioxide 24.8 mmol/L (21.6-31.8); Chloride 99 mmol/L (96-109); Globulin 2.9 g/dL (1.6-3.3); Glucose 102 mg/dL (70-110); Potassium 4.5 mmol/L (3.5-5.5); Sodium 135 mmol/L (135-145); Total Bilirubin 0.3 mg/dL (0.3-1.2); Total Protein 6.2 g/dL (6.2-8.2)
== END | disposition home or self-care (01) ==
LOC: LABMARSNF 11:35 → EDSTATUS 11:36
PROVIDERS: ATTEND Family Medicine
DX: I10 Essential (primary) hypertension (principal)
CPT/HCPCS: 80053